=== PATIENT | female | born 1985 | race Caucasian/White ===

== ENCOUNTER 2023-01-11 16:17 | Emergency (ER) | payer MEDICAID, SELFPAY ==
[2023-01-11 16:21] VITALS: BMI 20.1
[2023-01-11 16:23] VITALS: BP 129/63; PULSE 79; RESP 16; TEMP 36.4; O2SAT 100
--- NOTE | 2023-01-11 16:45 | ED_ITS ---
Documented by User: REJI Araya 01/12/23 07:17 HPI - Nausea/Vomiting/Diarrhea General: Chief complaint: Nausea/Vomiting/Diarrhea Stated complaint: N/V Time Seen by Provider: 01/11/23 16:25 Source: patient and family () Mode of arrival: ambulatory Limitations: no limitations History of Present Illness: 37-year-old female comes in today for complaints of nausea vomiting and diarrhea since Tuesday. Patient reports that she has ulcerative colitis and has not b een on any maintenance medications since moving to [place] from [place]. Patient reports no fever. Patient does use marijuana routinely. Patient has had C-sections, hemorrhoidectomy with sphincter repair, and a colonoscopy done in 2014. Patient appears unwell but not toxic. Patient appears in mild to no pain. Patient was brought in by EMS and was given Phenergan in route for her nausea and vomiting which she states has improved her symptoms. Patient also has a history of iron deficient anemia. Patient is a 37-year-old female presents to ED today with complaint of nausea, vomiting, diarrhea. states that symptoms have been present over the past 2 to 3 days. He states patient has a history of ulcerative colitis and has not been on any medications for this ever since moving from [place]. They state since September this is patient's third episode of acute onset nausea vomiting diarrhea. Patient states she has vomited and had countless episodes of diarrhea. She describes the diarrhea as yellow and watery. She does report multiple previous episodes of C. difficile. Patient is not complaining of much abdominal pain or cramping. She has not had any bloody diarrhea. No fevers. She does use marijuana habitually. MD elicited complaint: nausea, vomiting and diarrhea Pertinent past history: other (ulcerative colitis) Onset (ago): day(s) Associated abdominal pain: No Exacerbating factors: none Relieving factors: none Context: marijuana use Associated symtoms: Denies dizziness, dysuria or fatigue Review of Systems Const: Denies: fever(s), chills, body aches or fatigue GI: Denies: abdominal pain, hematochezia or melena : Denies: flank pain, dysuria, urinary frequency, urinary urgency or urinary hesitancy Musc: Denies: extremity pain, extremity swelling or joint pain Neuro: Denies: numbness in extremities, weakness in extremities, sensory changes or dizziness [facility] Female Reproductive History: Date of last menstrual period: 12/15/22 Physical Exam Const: COMMON NORMALS: no acute distress, average body habitus, patient oriented x3, no limitations, healthy appearing and well nourished GENERAL APPEARANCE: cooperative and ill appearing (mild) ORIENTATION/CONSCIOUSNESS: Yes awake, Yes oriented to person, Yes oriented to place and Yes oriented to time HENMT: COMMON NORMALS: atraumatic HEAD & SCALP: normal to inspection and atraumatic Neck/C-Spine: COMMON NORMALS: no lymphadenopathy GI: COMMON NORMALS: Normal to inspection, nondistended, normoactive bowel sounds present, No hepatosplenomegaly present and no masses INSPECTION: Yes normal to inspection AUSCULTATION: Yes normoactive bowel sounds PALPATION: No Tenderness to palpation present (GI), No Guarding due to palpation present (GI), No Rigid due to palpation and Yes No hepatosplenomegaly present : COMMON NORMALS: Yes no CVA tenderness BLADDER/KIDNEY EXAM: Yes no CVA tenderness Back/Pelvis: COMMON NORMALS: no CVA tenderness, no thoracic nor lumbar tenderness and thoraco-lumbar ROM normal Extremity: COMMON NORMALS: normal to inspection GENERAL: Yes normal exam except as noted Neuro: MICHELLE COMA SCALE: document GCS findings [place] coma scale eye opening: Spontaneous Michelle coma scale verbal response: Orientated Michelle coma scale motor response: Obey commands [place] coma scale total score: 15 COMMON NORMALS: patient oriented x3, moves all extremities, no focal motor deficits, no sensory deficits noted and gait normal SENSORIUM/ORIENTATION: Yes oriented to person, Yes oriented to place and Yes oriented to time Skin: COMMON NORMALS: no rashes or lesions noted GENERAL SKIN EXAM: no rashes or lesions noted Course ED course: Care transferred to [facility] at shift change. Vital Signs: Vital signs: Vital Signs Temperature 97.6 F 01/11/23 16:23 Pulse Rate 93 01/11/23 21:08 Respiratory Rate 16 01/11/23 21:08 Blood Pressure 129/63 01/11/23 16:23 Pulse Oximetry 100 01/11/23 21:08 Oxygen Delivery Me thod Room Air 01/11/23 16:23 MDM - Nausea/Vomiting/Diarrhea Lab Data 01/11/23 16:25 01/11/23 16:25 Radiology Impressions Abdomen/Pelvis CT 01/11/23 17:08 IMPRESSION: 1. Nonspecific terminal ileitis and pancolitis, as described above. No abscess, obstruction or free air. Follow-up to resolution is recommended. 2. Additional findings, as above. Laboratory Results WBC 9.11 10^3/uL (3.29-11.43) 01/11/23 16:25 RBC 5.60 10^6/uL (3.85-5.65) 01/11/23 16:25 Hgb 10.30 g/dL (11.27-16.99) L 01/11/23 16:25 Hct 36.4 % (36-47) 01/11/23 16:25 MCV 65.0 fl (85-98) L 01/11/23 16:25 MCH 18.4 pg (27-33) L 01/11/23 16:25 MCHC 28.3 g/dL (30-55) L 01/11/23 16:25 RDW 21.1 % (12.1-15.1) H 01/11/23 16:25 Plt Count 624 10^3/cmm (157-399) H 01/11/23 16:25 MPV 9.2 fL (7.4-10.4) 01/11/23 16:25 Neut % (Auto) 70.9 % 01/11/23 16:25 Lymph % (Auto) 19.9 % 01/11/23 16:25 [facility] % (Auto) 7.9 % 01/11/23 16:25 Eos % (Auto) 0.1 % 01/11/23 16:25 Baso % (Auto) 0.9 % 01/11/23 16:25 Neut # (Auto) 6.46 10^3/uL (1.8-7.7) 01/11/23 16:25 Lymph # (Auto) 1.8 10^3/uL (0.8-4.8) 01/11/23 16:25 [facility] # (Auto) 0.7 10^3/uL (0.2-0.9) 01/11/23 16:25 Eos # (Auto) 0.0 10^3/uL (0.0-0.8) 01/11/23 16:25 Baso # (Auto) 0.1 10^3/uL (0.0-0.1) 01/11/23 16:25 Nucleated RBC % (auto) 0 % 01/11/23 16:25 Nucleated RBCs # 0.0 /100WBC 01/11/23 16:25 Sodium 141 mmol/L (136-145) 01/11/23 16:25 Potassium 3.8 mmol/L (3.5-5.1) 01/11/23 16:25 Chloride 99 mmol/L (98-107) 01/11/23 16:25 Carbon Dioxide 24 mmol/L (22-29) 01/11/23 16:25 Anion Gap 21.8 (5-19) H 01/11/23 16:25 BUN 9 mg/dL (6-20) 01/11/23 16:25 Creatinine 0.7 mg/dL (0.5-0.9) 01/11/23 16:25 GFR Calculation 95.2 mL/min (90-130) 01/11/23 16:25 Glucose 112 mg/dL (65-115) 01/11/23 16:25 Calculated Osmolality 291 mOsm/kg (285-295) 01/11/23 16:25 Calcium 9.0 mg/dL (8.5-10.5) 01/11/23 16:25 Total Bilirubin 0.7 mg/dL (0.15-1.2) 01/11/23 16:25 AST 14 U/L (0-32) 01/11/23 16:25 ALT 7 U/L (0-33) 01/11/23 16:25 Alkaline Phosphatase 107 U/L (35-105) H 01/11/23 16:25 Total Protein 8.1 g/dL (6.6-8.7) 01/11/23 16:25 Albumin 4.2 g/dL (3.5-5.2) 01/11/23 16:25 Globulin 3.9 g/dL (1.3-4.6) 01/11/23 16:25 Lipase 17 U/L (13-60) 01/11/23 16:25 HCG, Qual Negative (Negative) 01/11/23 16:25 Discharge Plan Discharge Patient Disposition: Home Clinical Impression: Pancolitis Condition: Stable Prescriptions: New promethazine 12.5 mg tablet 12.5 mg PO Q6H PRN (Reason: nausea and vomiting) Qty: 20 0RF promethazine 25 mg suppository 25 mg RI Q6H PRN (Reason: nausea and vomiting) Qty: 12 0RF metronidazole 250 mg tablet 250 mg PO TID Qty: 21 0RF prednisone 20 mg tablet 20 mg PO BID 7 Days Qty: 14 0RF Discharge Orders: Discharge ED (Routine); Ordered 01/11/23 Ordered By: Pankaj Marino Discharge Diet: Advance as tolerated Discharge Activity: Increase activity as tolerated Patient Instructions: Opioid Safety, Pain Management Activity Restrictions/Additional Instructions: Drink plenty of water and fluids. Use promethazine as needed to control nausea and vomiting. Use Flagyl as directed. Take steroids routinely. Use an elec trolyte solution especially with diarrhea. Follow-up with primary care as needed. Case management will contact you regarding follow-up appointment with gastroenterology/surgeon for further evaluation and treatment with colonoscopy. Return to ER for worsening symptoms such as blood in the stool, high fever greater than 100.4, or new concerns. Sign Out Sign Out Data: Patient Sign Out occurred on 01/11/23 at 17:53. Patient's care was discussed, and care was transferred from to Pankaj Marino. Coding Level of Care Code ED Press Secretary for Chg Fwd Documented by User: WEST Lawler 01/11/23 18:37 HPI - Nausea/Vomiting/Diarrhea General: Chief complaint: Nausea/Vomiting/Diarrhea Stated complaint: N/V Time Seen by Provider: 01/11/23 16:25 History of Present Illness: 37-year-old female comes in today for complaints of nausea vomiting and diarrhea since Tuesday. Patient reports that she has ulcerative colitis and has not been on any maintenance medications since moving to [place] from [place]. Patient reports no fever. Patient does use marijuana routinely. Patient has had C-sections, hemorrhoidectomy with sphincter repair, and a colonoscopy done in 2014. Patient appears unwell but not toxic. Patient appears in mild to no pain. Patient was brought in by EMS and was given Phenergan in route for her nausea and vomiting which she states has improved her symptoms. Patient also has a history of iron deficient anemia. Associated nausea: Yes Associated symtoms: Reports headache(s), malaise and nausea; Denies chest pain Review of Systems General: Reports: 10 or more systems reviewed and unremarkable except in HPI and below Const: Reports: malaise Card: Denies: chest pain Resp: Reports: dyspnea GI: Reports: nausea, vomiting and diarrhea : Denies: difficulty voiding Musc: Denies: neck pain or back pain Skin/Breast: Denies: rash Neuro: Reports: headache(s) Physical Exam Const: COMMON NORMALS: alert HENMT: COMMON NORMALS: normocephalic HEAD & SCALP: normocephalic MOUTH: Abnormal oral and palatal mucosa present (Dry) Neck/C-Spine: COMMON NORMALS: full ROM and no meningeal signs Resp: COMMON NORMALS: normal respiratory effort and clear to auscultation bilaterally AUSCULTATION: clear to auscultation bilaterally Cardio: COMMON NORMALS: regular rate and regular rhythm RATE: regular rate RHYTHM: regular rhythm GI: COMMON NORMALS: Soft to palpation and non-tender PALPATION: Yes Soft to palpation Back/Pelvis: COMMON NORMALS: thoracic and lumbar spine normal to inspection Extremity: COMMON NORMALS: full ROM Neuro: SENSORIUM/ORIENTATION: Yes alert MENINGEAL SIGNS: Yes no meningeal signs Skin: COMMON NORMALS: turgor normal GENERAL SKIN EXAM: turgor normal Course Vital Signs: Vital signs: Vital Signs Temperature 97.6 F 01/11/23 16:23 Pulse Rate 93 01/11/23 21:08 Respiratory Rate 16 01/11/23 21:08 Blood Pressure 129/63 01/11/23 16:23 Pulse Oximetry 100 01/11/23 21:08 Oxygen Delivery Me thod Room Air 01/11/23 16:23 MDM - Nausea/Vomiting/Diarrhea Medical Decision Making 37-year-old female comes in today with nausea vomiting diarrhea since Tuesday. Patient has a history of ulcerative colitis. On exam abdomen soft with mild tenderness. Bowel sounds are hyperactive. Skin is warm and dry. Oral mucosas dry. Vital signs are normal. Differential diagnosis includes but not limited to gastroenteritis, exacerbation of ulcerative colitis, cannabinoid hyperemesis syndrome, dehydration, appendicitis. CMP noted some mild microcytic anemia with a hemoglobin of 10.3, CMP was unremarkable except for some elevation in anion gap of 21.8, and alk phos of 107. CT of the abdomen pelvis noted ileitis with pancolitis without signs of abscess, obstruction, or free air. Exam points towards exacerbation of ulcerative colitis, patient was given 1 L of IV fluids which improved symptoms tremendously suggesting secondary dehydration. Patient was started on steroids and Flagyl with recommendations to follow-up with gastro/surgeon for colonoscopy and further evaluation and treatment. Patient reported understanding of care plan and need for follow-up or return to the ER. I reviewed this with Dr. Henriquez who agreed to plan. Lab Data 01/11/23 16:25 01/11/23 16:25 Radiology Impressions Abdomen/Pelvis CT 01/11/23 17:08 IMPRESSION: 1. Nonspecific terminal ileitis and pancolitis, as described above. No abscess, obstruction or free air. Follow-up to resolution is recommended. 2. Additional findings, as above. Laboratory Results WBC 9.11 10^3/uL (3.29-11.43) 01/11/23 16:25 RBC 5.60 10^6/uL (3.85-5.65) 01/11/23 16:25 Hgb 10.30 g/dL (11.27-16.99) L 01/11/23 16:25 Hct 36.4 % (36-47) 01/11/23 16:25 MCV 65.0 fl (85-98) L 01/11/23 16:25 MCH 18.4 pg (27-33) L 01/11/23 16:25 MCHC 28.3 g/dL (30-55) L 01/11/23 16:25 RDW 21.1 % (12.1-15.1) H 01/11/23 16:25 Plt Count 624 10^3/cmm (157-399) H 01/11/23 16:25 MPV 9.2 fL (7.4-10.4) 01/11/23 16:25 Neut % (Auto) 70.9 % 01/11/23 16:25 Lymph % (Auto) 19.9 % 01/11/23 16:25 [facility] % (Auto) 7.9 % 01/11/23 16:25 Eos % (Auto) 0.1 % 01/11/23 16:25 Baso % (Auto) 0.9 % 01/11/23 16:25 Neut # (Auto) 6.46 10^3/uL (1.8-7.7) 01/11/23 16:25 Lymph # (Auto) 1.8 10^3/uL (0.8-4.8) 01/11/23 16:25 [facility] # (Auto) 0.7 10^3/uL (0.2-0.9) 01/11/23 16:25 Eos # (Auto) 0.0 10^3/uL (0.0-0.8) 01/11/23 16:25 Baso # (Auto) 0.1 10^3/uL (0.0-0.1) 01/11/23 16:25 Nucleated RBC % (auto) 0 % 01/11/23 16:25 Nucleated RBCs # 0.0 /100WBC 01/11/23 16:25 Sodium 141 mmol/L (136-145) 01/11/23 16:25 Potassium 3.8 mmol/L (3.5-5.1) 01/11/23 16:25 Chloride 99 mmol/L (98-107) 01/11/23 16:25 Carbon Dioxide 24 mmol/L (22-29) 01/11/23 16:25 Anion Gap 21.8 (5-19) H 01/11/23 16:25 BUN 9 mg/dL (6-20) 01/11/23 16:25 Creatinine 0.7 mg/dL (0.5-0.9) 01/11/23 16:25 GFR Calculation 95.2 mL/min (90-130) 01/11/23 16:25 Glucose 112 mg/dL (65-115) 01/11/23 16:25 Calculated Osmolality 291 mOsm/kg (285-295) 01/11/23 16:25 Calcium 9.0 mg/dL (8.5-10.5) 01/11/23 16:25 Total Bilirubin 0.7 mg/dL (0.15-1.2) 01/11/23 16:25 AST 14 U/L (0-32) 01/11/23 16:25 ALT 7 U/L (0-33) 01/11/23 16:25 Alkaline Phosphatase 107 U/L (35-105) H 01/11/23 16:25 Total Protein 8.1 g/dL (6.6-8.7) 01/11/23 16:25 Albumin 4.2 g/dL (3.5-5.2) 01/11/23 16:25 Globulin 3.9 g/dL (1.3-4.6) 01/11/23 16:25 Lipase 17 U/L (13-60) 01/11/23 16:25 HCG, Qual Negative (Negative) 01/11/23 16:25 Discharge Plan Discharge Patient Disposition: Home Clinical Impression: Pancolitis Condition: Stable Prescriptions: New promethazine 12.5 mg tablet 12.5 mg PO Q6H PRN (Reason: nausea and vomiting) Qty: 20 0RF promethazine 25 mg suppository 25 mg RI Q6H PRN (Reason: nausea and vomiting) Qty: 12 0RF metronidazole 250 mg tablet 250 mg PO TID Qty: 21 0RF prednisone 20 mg tablet 20 mg PO BID 7 Days Qty: 14 0RF Discharge Orders: Discharge ED (Routine); Ordered 01/11/23 Ordered By: Pankaj Marino Discharge Diet: Advance as tolerated Discharge Activity: Increase activity as tolerated Patient Instructions: Opioid Safety, Pain Management Activity Restrictions/Additional Instructions: Drink plenty of water and fluids. Use promethazine as needed to control nausea and vomiting. Use Flagyl as directed. Take steroids routinely. Use an electrolyte solution especially with diarrhea. Follow-up with primary care as needed. Case management will contact you regarding follow-up appointment with gastroenterology/surgeon for further evaluation and treatment with colonoscopy. Return to ER for worsening symptoms such as blood in the stool, high fever greater than 100.4, or new concerns. Sign Out Sign Out Data: Patient Sign Out occurred on 01/11/23 at 17:53. Patient's care was discussed, and care was transferred from to Pankaj Marino. Coding Level of Care Code ED Press Secretary for Rekha Esparza
[2023-01-11 16:50] LABS: Basophils # 0.1 10^3/uL (0.0-0.1); Basophils % 0.9 %; Eosinophils % 0.1 %; Hematocrit 36.4 % (36-47); Lymphocytes # 1.8 10^3/uL (0.8-4.8); Lymphocytes % 19.9 %; Mean Corpuscular HGB Conc 28.3 g/dL (30-55); Mean Corpuscular Hemoglobin 18.4 pg (27-33); Mean Platelet Volume 9.2 fL (7.4-10.4); Monocytes # 0.7 10^3/uL (0.2-0.9); Monocytes % 7.9 %; Neutrophils # 6.46 10^3/uL (1.8-7.7); Neutrophils % 70.9 %; Nucleated Red Blood Cells % 0 %; Platelet Count 624 10^3/cmm (157-399); Red Cell Distribution Width 21.1 % (12.1-15.1); White Blood Count 9.11 10^3/uL (3.29-11.43)
[2023-01-11 16:57] LABS: HCG, Serum Qual Negative (Negative)
[2023-01-11 16:58] LABS: Alanine Aminotransferase 7 U/L (0-33); Albumin Level 4.2 g/dL (3.5-5.2); Alkaline Phosphatase 107 U/L (35-105); Anion Gap 21.8 (5-19); Aspartate Amino Transferase 14 U/L (0-32); Blood Urea Nitrogen 9 mg/dL (6-20); Carbon Dioxide 24 mmol/L (22-29); Chloride 99 mmol/L (98-107); Globulin 3.9 g/dL (1.3-4.6); Glomerular Filtration Rate 95.2 mL/min (90-130); Glucose 112 mg/dL (65-115); Lipase 17 U/L (13-60); Osmolality Calculated 291 mOsm/kg (285-295); Potassium 3.8 mmol/L (3.5-5.1); Sodium 141 mmol/L (136-145); Total Bilirubin 0.7 mg/dL (0.15-1.2); Total Protein 8.1 g/dL (6.6-8.7)
--- NOTE | 2023-01-11 17:08 | CTR_ITS ---
PROCEDURE INFORMATION: Exam: CT Abdomen And Pelvis With Contrast Exam date and time: 01/11/2023 5:17 PM Age: 37 years old Clinical indication: Mass, lump, or swelling and vomiting; Prior surgery; Surgery date: 6+ months; Surgery type: Hernia repair, x2; Additional info: N/v/d TECHNIQUE: Imaging protocol: Computed tomography of the abdomen and pelvis with contrast. Axial, coronal and sagittal reformatted images were created and reviewed. In Radiation optimization: All CT scans at this facility use at least one of these dose optimization techniques: automated exposure control; mA and/or kV adjustment per patient size (includes targeted exams where dose is matched to clinical indication); or iterative reconstruction. Contrast material: OMNI 350; Contrast volume: 100 ml; Contrast route: INTRAVENOUS (IV); REPORTING DATA: Count of CT and Cardiac NM exams in prior 12 months: This patient has received 0 known CTs and 0 known cardiac nuclear medicine studies in the 12 months prior to the current study. COMPARISON: No relevant prior studies available. RADIATION DOSE METRICS: Total DLP (mGy-cm): 307.96 FINDINGS: Liver: Unremarkable. Gallbladder and bile ducts: No radiodense gallstones. No biliary ductal dilatation. Pancreas: Unremarkable. Spleen: Unremarkable. Adrenal glands: Normal. No mass. Kidneys and ureters: No mass. No radiodense calculi. No hydronephrosis. Stomach and bowel: Moderately long segment of distal/terminal ileal wall thickening with associated mural and mesenteric edema. Diffuse colonic wall thickening with associated mural and pericolonic edema. No obstruction. No pneumatosis. Appendix: Normal. Intraperitoneal space: Trace nonspecific free pelvic fluid, likely physiologic and/or reactive. No organized fluid collection. No free air. Vasculature: Unremarkable. No aneurysm. Lymph nodes: Small mesenteric lymph nodes, likely reactive. No pathologically enlarged lymph nodes. Urinary bladder: Unremarkable as visualized. Reproductive: Unremarkable. Bones/joints: No acute osseous abnormality. Soft tissues: Unremarkable. CT/CT abdomen pelvis w con* [id number] IMPRESSION: 1. Nonspecific terminal ileitis and pancolitis, as described above. No abscess, obstruction or free air. Follow-up to resolution is recommended. 2. Additional findings, as above.
[2023-01-11] MEDS: iohexol 350 mg/mL 500 mL Btl (per mL) IV (17:27)
[2023-01-11] MEDS: methylPREDNISolone sod succ 125 MG in water for injection-sterile 2 ML IVP (17:56)
[2023-01-11] MEDS: metroNIDAZOLE IV 500 MG/100 ML PREMIX 100 MG IV (17:57)
[2023-01-11] MEDS: sodium chloride 0.9% 1,000 ML 999 ML IV (18:44)
[2023-01-11] MEDS: promethazine 25 mg/mL SDV 1 mL IM (19:22)
[2023-01-11] MEDS: diphenhydrAMINE 50 mg/mL SDV 1mL 25 MG IVP (19:36)
[2023-01-11] MEDS: diphenhydrAMINE 50 mg/mL SDV 1mL IM (20:15)
--- NOTE | 2023-01-11 20:15 | PC.NURSE ---
Phenergan suppository sent home with pt per BEAD FILLER's order.
[2023-01-11 21:08] VITALS: PULSE 93; RESP 16; O2SAT 100
--- NOTE | 2023-01-12 07:47 | DCPLANNER ---
Addendum entered by Leida Elizabeth 01/12/23 11:22: ramp manager received the following message from the general surgery clinic regarding follow up appointment: spoke to pt she wants to wait until her insurance kicks in to make an appointment with us she said she would call us back when she has insurance Original Note: ramp manager had massage to schedule a follow up appointment for patient with general surgery. ramp manager sent patients information to the front office staff at general surgery. Patients information will be printed and reviewed. Clinic will call patient with appointment information.
== END 2023-01-11 20:46 | disposition home or self-care (01) ==
PROVIDERS: Physician Assistant; Emergency Provider Nurse Practitioner Family
DX: K51.00 Ulcerative (chronic) pancolitis without complications (principal)
CPT/HCPCS: 74177; 80053; 83690; 84703; 85025; 96365; 96366; 96372; 96375; 99285; J1200; J2550; J2930; J3490; J7030; Q9967

== ENCOUNTER 2023-01-13 07:43 | Inpatient (IN) | payer MEDICAID, SELFPAY ==
[2023-01-13] VITALS (12 sets, daily range): BP systolic 100–146; BP diastolic 56–86; PULSE 56–74; RESP 15–20; TEMP 36.6–37.1; O2SAT 94–100
[2023-01-13] MEDS: ondansetron 2 mg/ML SDV 2 mL 4 MG IVP ×2 (08:45→15:11)
[2023-01-13] MEDS: sodium chloride 0.9% 1,000 ML 999 ML IV (08:46)
[2023-01-13] MEDS: LORazepam 2 mg/mL INJ 1 mL 1 MG IVP (08:46)
[2023-01-13 09:01] LABS: Basophils % 0.2 %; Hematocrit 31.7 % (36-47); Lymphocytes # 1.4 10^3/uL (0.8-4.8); Lymphocytes % 8.3 %; Mean Corpuscular Hemoglobin 18.8 pg (27-33); Mean Corpuscular Volume 64.7 fl (85-98); Mean Platelet Volume 8.9 fL (7.4-10.4); Monocytes # 1.1 10^3/uL (0.2-0.9); Monocytes % 6.4 %; Neutrophils # 14.05 10^3/uL (1.8-7.7); Neutrophils % 84.6 %; Nucleated Red Blood Cells % 0 %; Platelet Count 635 10^3/cmm (157-399); Red Cell Distribution Width 21.2 % (12.1-15.1); White Blood Count 16.61 10^3/uL (3.29-11.43)
--- NOTE | 2023-01-13 09:05 | PC.PHAR ---
PTS' FATHER STATED QUIETLY HE THINKS SHE IS NOT TAKING ANY OF HER MEDICATIONS. MEÑO
[2023-01-13 09:20] LABS: HCG, Serum Qual Negative (Negative)
[2023-01-13 09:24] LABS: Alanine Aminotransferase 9 U/L (0-33); Albumin Level 3.7 g/dL (3.5-5.2); Alkaline Phosphatase 88 U/L (35-105); Anion Gap 23.7 (5-19); Aspartate Amino Transferase 21 U/L (0-32); Blood Urea Nitrogen 10 mg/dL (6-20); Calcium 9.8 mg/dL (8.5-10.5); Carbon Dioxide 18 mmol/L (22-29); Chloride 104 mmol/L (98-107); Globulin 3.7 g/dL (1.3-4.6); Glomerular Filtration Rate 95.2 mL/min (90-130); Glucose 107 mg/dL (65-115); Lipase 13 U/L (13-60); Osmolality Calculated 294 mOsm/kg (285-295); Potassium 3.7 mmol/L (3.5-5.1); Sodium 142 mmol/L (136-145); Total Bilirubin 0.6 mg/dL (0.15-1.2); Total Protein 7.4 g/dL (6.6-8.7)
[2023-01-13 09:26] LABS: Add Urine Microscopic? YES; Bilirubin Urine Neg (Negative); Blood Urine Neg (Negative); Glucose Urine UA Norm (Normal); Ketones Urine 3+ (Negative); Leukocyte Esterase Urine Negative (Negative); Nitrate Urine Negative (Negative); Protein Urine Trace (Negative); Urine Appearance Hazy (CLEAR); Urine Color Yellow (Yellow); Urobilinogen Urine Norm (Negative); pH Urine 6 (5-7)
[2023-01-13 09:27] LABS: Bacteria Urine 1+ /hpf; Mucus Urine 2+ /hpf; RBC Urine RARE /hpf (0-2); WBC Urine 0-4 /hpf (0-5)
--- NOTE | 2023-01-13 09:44 | CT_ITS ---
WS: [id number] CT ABDOMEN AND PELVIS WITH CONTRAST HISTORY: abdominal pain TECHNIQUE: Imaging performed of the abdomen and pelvis with IV contrast. Single phase imaging of the abdomen. Coronal and sagittal reformats are submitted. All CT scans at [facility] use at [address] one of these dose optimization techniques: automated exposure control; mA and/or kV adjustment per patient size (includes targeted exams where dose is matched to clinical indication); or iterative re construction. IV CONTRAST: Omnipaque 350; 100 mL IV. Oral contrast: No DLP: 303.25 mGy.cm COMPARISON: 01/11/2023 Lower thorax: Lung bases are clear. Heart is normal size. Small hiatal hernia. Liver/biliary system: Normal size with no intrahepatic dilatation. Gallbladder: There is increased attenuation within the gallbladder. Probably vicarious excretion thro ugh the biliary system from a CT obtained on 01/11/2023. Pancreas: Normal size pancreas and pancreatic duct. No adjacent inflammation. Spleen: Normal size spleen. No mass or infarct. Adrenal glands: Normal. Right kidney: Normal. Left kidney: Normal. Aorta: Normal. Lymphadenopathy: None. Free fluid: None. GI tract: Mild fluid distention of the stomach. No small bowel obstruction. There is a patulous loop of distended GI tract in the RIGHT lower quadrant which was also present on the prior study. Distal s mall bowel loop is fluid distention and this is probably the distal small bowel. The terminal ileum i s mildly narrowed. There is a very mild shaggy appearance of the terminal ileum and the distal small bowel. There is a shaggy appearance of nearly the entire colon with wall thickening. Enhancement of t he colonic wall but there is no obstruction. Similar findings were noted on the prior study with mild improvement. No abscess. The appendix is not identified. Abdominal wall: Unremarkable abdominal wall. No hernia. Pelvis: No free fluid or adenopathy within the pelvis. Bones: Unremarkable. IMPRESSION: 1. Continued hyperemia and wall thickening of the colon and distal small bowel. Findings are consist ent with acute exacerbation of IBD and ileitis. There is a patulous loop of dilated distal small yefri l in the RIGHT lower quadrant which may be due to an partial longstanding obstruction at the terminal ileum. There is no perforation or abscess at this time. The appendix is not identified. 2. No renal obstruction.
--- NOTE | 2023-01-13 09:45 | W.ED.ABDPA2 ---
Documented by User: Aniya Hakwins DIAMOND SORTER-C 01/13/23 12:04 HPI - Abdominal Pain General: Chief Complaint: Abdominal Pain Stated Complaint: abd pain, anxiety Time Seen by Provider: 01/13/23 07:45 History of Present Illness: Patient is in today for nausea, vomiting, diarrhea. Patient does most of the talking for her as patient states she feels like she will vomit. She does shake her head in agreements with what the is saying. Spouse says that patient started vomiting on Tuesday of last week and has been vomiting more than 20 times a day lately more than 30 times a day. He states that she has a history of ulcerative colitis as she has had 3 major flares in the past 1 year. He states that she was seen in the ER on Tuesday and was sent home with Flagyl and Phenergan and steroids. They were unable to pick this up until Tuesday at 11 when the pharmacy opened. He reports that the patient has not been able to keep any of the medication down. He reports that last night the patient started having blood in her vomit and worsening central abdominal pain so they decided to return today. Patient denies fever. Associated Symptoms: Reports diarrhea, nausea and vomiting; Denies chills, dysuria and fever(s) Review of Systems Const: Denies: fever(s) or chills Card: Denies: chest pain or palpitations Resp: Denies: dyspnea or productive cough GI: Reports: abdominal pain, nausea, vomiting and diarrhea : Denies: flank pain, difficulty voiding or dysuria Psych: Reports: anxiety (Reports increased anxiety taking the Phenergan) [facility] PFSH: Medical History (Updated 01/13/23 @ 15:22 by Ignacio Corral DO) Anxiety PTSD (post-traumatic stress disorder) Surgical History (Updated 01/13/23 @ 12:49 by Rodriguez Burns MD) H/O congenital atrial septal defect (ASD) repair History of History of hemorrhoidectomy History of hernia repair Family History (Updated 01/13/23 @ 12:49 by Rodriguez Burns MD) Other Psychiatric illness Social History (Updated 01/13/23 @ 12:50 by Rodriguez Burns MD) Alcohol intake: never Substance/Drug Use: current Substance/Drug use type: Marijuana Physical Exam Const: OTHER: This is an ill-appearing female. She is alert and oriented. She is actively vomiting and having dry heaves. Neck/C-Spine: COMMON NORMALS: no JVD Resp: COMMON NORMALS: normal respiratory effort, No use of accessory muscles and clear to auscultation bilaterally AUSCULTATION: clear to auscultation bilaterally Cardio: COMMON NORMALS: no JVD, regular rate, regular rhythm, S1 normal heart sound present and S2 normal heart sound present RATE: regular rate RHYTHM: regular rhythm HEART SOUNDS: S1 normal heart sound present and S2 normal heart sound present GI: COMMON NORMALS: Soft to palpation INSPECTION: Yes normal to inspection AUSCULTATION: Yes normoactive bowel sounds PALPATION: Yes Soft to palpation and Yes Tenderness to palpation present (GI) Details: other (Generalized) Psych: OTHER: Patient is anxious and tearful. states that she has medical trauma PTSD Course Vital Signs: Vital signs: Vital Signs Temperature 98.3 F 01/13/23 13:50 Pulse Rate 70 01/13/23 13:50 Respiratory Rate 20 H 01/13/23 13:50 Blood Pressure 109/63 01/13/23 13:50 Pulse Oximetry 100 01/13/23 13:50 Oxygen Delivery Me thod Room Air 01/13/23 13:51 MDM - Abdominal Pain Medical Decision Making When patient was here on Tuesday her labs are essentially unremarkable her CT scan showed pancolitis with no abscess or perforation. Patient was sent home on Flagyl, steroid, Phenergan. Patient was referred to GI for further evaluation and colonoscopy. It is reported by case management the patient declined referral as she is not insured. Patient has not started any of the medications that she was prescribed on Tuesday as she has been unable to keep anything down. Labs today indicate a white blood cell count of 16.6. Elevated anion gap. Urine shows 1+ bacteria with ketones. No nitrates. Patient is given a liter of normal saline IV fluids. She is treated with Zofran which did help her nausea. Morphine to help with her pain. 1 dose of Ativan was given for patient's anxiety. CT scan shows consistent findings from previous scan with generalized wall thickening consistent with IBD and ileitis. CT scan also shows suspicion of longstanding obstruction at the terminal ileum. No abscess or perforation appreciated. I have discussed this case at length with Dr. Rivera. He agrees with work-up and plan of care thus far. He also agrees with consulting with hospitalist for inpatient admission due to outpatient treatment failure. I called and spoke with Dr. Burns who is going to come down and see patient and evaluate. Lab Data 01/13/23 08:55 01/13/23 08:55 Labs/Radiology: Laboratory Results WBC 16.61 10^3/uL (3.29-11.43) H 01/13/23 08:55 RBC 4.90 10^6/uL (3.85-5.65) 01/13/23 08:55 Hgb 9.20 g/dL (11.27-16.99) L 01/13/23 08:55 Hct 31.7 % (36-47) L 01/13/23 08:55 MCV 64.7 fl (85-98) L 01/13/23 08:55 MCH 18.8 pg (27-33) L 01/13/23 08:55 MCHC 29.0 g/dL (30-55) L 01/13/23 08:55 RDW 21.2 % (12.1-15.1) H 01/13/23 08:55 Plt Count 635 10^3/cmm (157-399) H 01/13/23 08:55 MPV 8.9 fL (7.4-10.4) 01/13/23 08:55 Neut % (Auto) 84.6 % 01/13/23 08:55 Lymph % (Auto) 8.3 % 01/13/23 08:55 [place] % (Auto) 6.4 % 01/13/23 08:55 Eos % (Auto) 0.0 % 01/13/23 08:55 Baso % (Auto) 0.2 % 01/13/23 08:55 Neut # (Auto) 14.05 10^3/uL (1.8-7.7) H 01/13/23 08:55 Lymph # (Auto) 1.4 10^3/uL (0.8-4.8) 01/13/23 08:55 [place] # (Auto) 1.1 10^3/uL (0.2-0.9) H 01/13/23 08:55 Eos # (Auto) 0.0 10^3/uL (0.0-0.8) 01/13/23 08:55 Baso # (Auto) 0.0 10^3/uL (0.0-0.1) 01/13/23 08:55 Nucleated RBC % (auto) 0 % 01/13/23 08:55 Nucleated RBCs # 0.0 /100WBC 01/13/23 08:55 Sodium 142 mmol/L (136-145) 01/13/23 08:55 Potassium 3.7 mmol/L (3.5-5.1) 01/13/23 08:55 Chloride 104 mmol/L (98-107) 01/13/23 08:55 Carbon Dioxide 18 mmol/L (22-29) L 01/13/23 08:55 Anion Gap 23.7 (5-19) H 01/13/23 08:55 BUN 10 mg/dL (6-20) 01/13/23 08:55 Creatinine 0.7 mg/dL (0.5-0.9) 01/13/23 08:55 GFR Calculation 95.2 mL/min (90-130) 01/13/23 08:55 Glucose 107 mg/dL (65-115) 01/13/23 08:55 Calculated Osmolality 294 mOsm/kg (285-295) 01/13/23 08:55 Calcium 9.8 mg/dL (8.5-10.5) 01/13/23 08:55 Magnesium 1.6 mg/dL (1.7-2.3) L 01/13/23 08:51 Iron 21 ug/dL (37-145) L 01/13/23 08:51 TIBC 336 mcg/dl 01/13/23 08:51 % Saturation 6.2 % (20-50) L 01/13/23 08:51 Unsat Iron Binding 315 ug/dL (112-347) 01/13/23 08:51 Ferritin 8 ng/mL (15-150) L 01/13/23 08:51 Total Bilirubin 0.6 mg/dL (0.15-1.2) 01/13/23 08:55 AST 21 U/L (0-32) 01/13/23 08:55 ALT 9 U/L (0-33) 01/13/23 08:55 Alkaline Phosphatase 88 U/L (35-105) 01/13/23 08:55 C-Reactive Protein 9.4 mg/L (0.0-4.9) H 01/13/23 08:51 Total Protein 7.4 g/dL (6.6-8.7) 01/13/23 08:55 Albumin 3.7 g/dL (3.5-5.2) 01/13/23 08:55 Globulin 3.7 g/dL (1.3-4.6) 01/13/23 08:55 Lipase 13 U/L (13-60) 01/13/23 08:55 Vitamin B12 1552 pg/mL (232-1245) H 01/13/23 08:51 Folate 10.7 ng/mL (4.8-37.3) 01/13/23 08:37 TSH 2.99 uIU/mL (0.27-4.20) 01/13/23 08:51 HCG, Qual Negative (Negative) 01/13/23 08:55 Urine Color Yellow (Yellow) 01/13/23 08:51 Urine Appearance Hazy (CLEAR) A 01/13/23 08:51 Urine pH 6 (5-7) 01/13/23 08:51 Ur Specific [place] 1.030 (1.005-1.030) 01/13/23 08:51 Urine Protein Trace (Negative) 01/13/23 08:51 Urine Glucose (UA) Norm (Normal) 01/13/23 08:51 Urine Ketones 3+ (Negative) H 01/13/23 08:51 Urine Blood Neg (Negative) 01/13/23 08:51 Urine Nitrate Negative (Negative) 01/13/23 08:51 Urine Bilirubin Neg (Negative) 01/13/23 08:51 Urine Urobilinogen Norm mg/dL (Negative) 01/13/23 08:51 Ur Leukocyte Esterase Negative (Negative) 01/13/23 08:51 Urine RBC Rare /hpf (0-2) 01/13/23 08:51 Urine WBC 0-4 /hpf (0-5) H 01/13/23 08:51 Ur Squamous Epith Cells 5-10 /hpf (0-5) H 01/13/23 08:51 Amorphous Sediment Not Reportable 01/13/23 08:51 Urine Bacteria 1+ /hpf (NONE) H 01/13/23 08:51 Urine Mucus 2+ /hpf 01/13/23 08:51 Discharge Plan Discharge Patient Disposition: Admitted As Inpatient Admit Provider: Rodriguez Burns Clinical Impression: Inflammatory bowel disease, Anemia Condition: Stable Coding Level of Care Code ED Classified Advertising Clerk for Rekha Esparza Documented by User: Ignacio Corral DO 01/13/23 15:22 HPI - Abdominal Pain General: Chief Complaint: Abdominal Pain Stated Complaint: abd pain, anxiety Time Seen by Provider: 01/13/23 07:45 PFSH ED PFSH: Medical History (Updated 01/13/23 @ 15:22 by Ignacio Corral DO) Anxiety PTSD (post-traumatic stress disorder) Surgical History (Updated 01/13/23 @ 12:49 by Rodriguez Burns MD) H/O congenital atrial septal defect (ASD) repair History of History of hemorrhoidectomy History of hernia repair Family History (Updated 01/13/23 @ 12:49 by Rodriguez Burns MD) Other Psychiatric illness Social History (Updated 01/13/23 @ 12:50 by Rodriguez Burns MD) Alcohol intake: never Substance/Drug Use: current Substance/Drug use type: Marijuana Course Vital Signs: Vital signs: Vital Signs Temperature 98.3 F 01/13/23 13:50 Pulse Rate 70 01/13/23 13:50 Respiratory Rate 20 H 01/13/23 13:50 Blood Pressure 109/63 01/13/23 13:50 Pulse Oximetry 100 01/13/23 13:50 Oxygen Delivery Me thod Room Air 01/13/23 13:51 MDM - Abdominal Pain Medical Decision Making When patient was here on Tuesday her labs are essentially unremarkable her CT scan showed pancolitis with no abscess or perforation. Patient was sent home on Flagyl, steroid, Phenergan. Patient was referred to GI for further evaluation and colonoscopy. It is reported by case management the patient declined referral as she is not insured. Patient has not started any of the medications that she was prescribed on Briana as she has been unable to keep anything down. Labs today indicate a white blood cell count of 16.6. Elevated anion gap. Urine shows 1+ bacteria with ketones. No nitrates. Patient is given a liter of normal saline IV fluids. She is treated with Zofran which did help her nausea. Morphine to help with her pain. 1 dose of Ativan was given for patient's anxiety. CT scan shows consistent findings from previous scan with generalized wall thickening consistent with IBD and ileitis. CT scan also shows suspicion of longstanding obstruction at the terminal ileum. No abscess or perforation appreciated. I have discussed this case at length with Dr. Rivera. He agrees with work-up and plan of care thus far. He also agrees with consulting with hospitalist for inpatient admission due to outpatient treatment failure. I called and spoke with Dr. Burns who is going to come down and see patient and evaluate. Chart reviewed and patient discussed with midlevel. Agree with assessment and plan. Medical Records I reviewed the patient's medical records. Lab Data I reviewed the patient's lab results. 01/13/23 08:55 01/13/23 08:55 Labs/Radiology: Laboratory Results WBC 16.61 10^3/uL (3.29-11.43) H 01/13/23 08:55 RBC 4.90 10^6/uL (3.85-5.65) 01/13/23 08:55 Hgb 9.20 g/dL (11.27-16.99) L 01/13/23 08:55 Hct 31.7 % (36-47) L 01/13/23 08:55 MCV 64.7 fl (85-98) L 01/13/23 08:55 MCH 18.8 pg (27-33) L 01/13/23 08:55 MCHC 29.0 g/dL (30-55) L 01/13/23 08:55 RDW 21.2 % (12.1-15.1) H 01/13/23 08:55 Plt Count 635 10^3/cmm (157-399) H 01/13/23 08:55 MPV 8.9 fL (7.4-10.4) 01/13/23 08:55 Neut % (Auto) 84.6 % 01/13/23 08:55 Lymph % (Auto) 8.3 % 01/13/23 08:55 [place] % (Auto) 6.4 % 01/13/23 08:55 Eos % (Auto) 0.0 % 01/13/23 08:55 Baso % (Auto) 0.2 % 01/13/23 08:55 Neut # (Auto) 14.05 10^3/uL (1.8-7.7) H 01/13/23 08:55 Lymph # (Auto) 1.4 10^3/uL (0.8-4.8) 01/13/23 08:55 [place] # (Auto) 1.1 10^3/uL (0.2-0.9) H 01/13/23 08:55 Eos # (Auto) 0.0 10^3/uL (0.0-0.8) 01/13/23 08:55 Baso # (Auto) 0.0 10^3/uL (0.0-0.1) 01/13/23 08:55 Nucleated RBC % (auto) 0 % 01/13/23 08:55 Nucleated RBCs # 0.0 /100WBC 01/13/23 08:55 Sodium 142 mmol/L (136-145) 01/13/23 08:55 Potassium 3.7 mmol/L (3.5-5.1) 01/13/23 08:55 Chloride 104 mmol/L (98-107) 01/13/23 08:55 Carbon Dioxide 18 mmol/L (22-29) L 01/13/23 08:55 Anion Gap 23.7 (5-19) H 01/13/23 08:55 BUN 10 mg/dL (6-20) 01/13/23 08:55 Creatinine 0.7 mg/dL (0.5-0.9) 01/13/23 08:55 GFR Calculation 95.2 mL/min (90-130) 01/13/23 08:55 Glucose 107 mg/dL (65-115) 01/13/23 08:55 Calculated Osmolality 294 mOsm/kg (285-295) 01/13/23 08:55 Calcium 9.8 mg/dL (8.5-10.5) 01/13/23 08:55 Magnesium 1.6 mg/dL (1.7-2.3) L 01/13/23 08:51 Iron 21 ug/dL (37-145) L 01/13/23 08:51 TIBC 336 mcg/dl 01/13/23 08:51 % Saturation 6.2 % (20-50) L 01/13/23 08:51 Unsat Iron Binding 315 ug/dL (112-347) 01/13/23 08:51 Ferritin 8 ng/mL (15-150) L 01/13/23 08:51 Total Bilirubin 0.6 mg/dL (0.15-1.2) 01/13/23 08:55 AST 21 U/L (0-32) 01/13/23 08:55 ALT 9 U/L (0-33) 01/13/23 08:55 Alkaline Phosphatase 88 U/L (35-105) 01/13/23 08:55 C-Reactive Protein 9.4 mg/L (0.0-4.9) H 01/13/23 08:51 Total Protein 7.4 g/dL (6.6-8.7) 01/13/23 08:55 Albumin 3.7 g/dL (3.5-5.2) 01/13/23 08:55 Globulin 3.7 g/dL (1.3-4.6) 01/13/23 08:55 Lipase 13 U/L (13-60) 01/13/23 08:55 Vitamin B12 1552 pg/mL (232-1245) H 01/13/23 08:51 Folate 10.7 ng/mL (4.8-37.3) 01/13/23 08:37 TSH 2.99 uIU/mL (0.27-4.20) 01/13/23 08:51 HCG, Qual Negative (Negative) 01/13/23 08:55 Urine Color Yellow (Yellow) 01/13/23 08:51 Urine Appearance Hazy (CLEAR) A 01/13/23 08:51 Urine pH 6 (5-7) 01/13/23 08:51 Ur Specific [place] 1.030 (1.005-1.030) 01/13/23 08:51 Urine Protein Trace (Negative) 01/13/23 08:51 Urine Glucose (UA) Norm (Normal) 01/13/23 08:51 Urine Ketones 3+ (Negative) H 01/13/23 08:51 Urine Blood Neg (Negative) 01/13/23 08:51 Urine Nitrate Negative (Negative) 01/13/23 08:51 Urine Bilirubin Neg (Negative) 01/13/23 08:51 Urine Urobilinogen Norm mg/dL (Negative) 01/13/23 08:51 Ur Leukocyte Esterase Negative (Negative) 01/13/23 08:51 Urine RBC Rare /hpf (0-2) 01/13/23 08:51 Urine WBC 0-4 /hpf (0-5) H 01/13/23 08:51 Ur Squamous Epith Cells 5-10 /hpf (0-5) H 01/13/23 08:51 Amorphous Sediment Not Reportable 01/13/23 08:51 Urine Bacteria 1+ /hpf (NONE) H 01/13/23 08:51 Urine Mucus 2+ /hpf 01/13/23 08:51 Discharge Plan Discharge Patient Disposition: Admitted As Inpatient Admit Provider: Rodriguez Burns Clinical Impression: Inflammatory bowel disease, Anemia Condition: Stable Coding Level of Care Code ED Classified Advertising Clerk for Rekha Esparza
[2023-01-13] MEDS: iohexol 350 mg/mL 500 mL Btl (per mL) IV (10:52)
[2023-01-13] MEDS: morphine 4 mg/mL SDV 1 mL 2 MG IVP ×2 (11:20→15:20)
--- NOTE | 2023-01-13 12:38 | PM.HP ---
Providers/Chief Complaint Admitting Physician: Rodriguez Burns MD Chief Complaint: abd pain, anxiety History of Present Illness Raven Carrillo is a 37 year old female presenting to the emergency department with abdominal pain, multiple lites episodes of vomiting, and diarrhea for the last week. She was seen in the emergency department on the and given some steroids to take but was unable to take them by mouth secondary to vomiting. She was given Flagyl as well. She is back today with similar symptoms. She occasionally has some blood in her stool, small amount. They believe with her multiple episodes of vomiting she may have had a little blood in her emesis as well. Pain in her abdomen is upper, epigastric. She has had 3 flares of inflammatory bowel disease in the last year, and reports this is consistent with them. She does use THC, last use perhaps 5 days ago. No fever at home. No ill contacts she is aware of. Diarrhea typically is yellow, watery, with occasionally a little bit of blood. She has not had any significant treatment for her inflammatory bowel disease in many years. She states she was diagnosed in 2013 and this was her last endoscopy. She had previously been told she had ulcerative colitis and was on sulfasalazine. reports a 20 pound or so weight loss since September. Review of Systems General: Reports: 10 or more systems reviewed and unremarkable except in HPI and below Card: Denies: chest pain Resp: Denies: dyspnea GI: Reports: abdominal pain, nausea, vomiting, hematemesis, diarrhea and hematochezia; Denies: melena Medications/Allergies Home Medications Medication Instructions Recorded Confirmed Last Taken Type metronidazole 250 mg tablet 250 mg PO TID #21 tabs 01/11/23 01/13/23 Unknown Rx prednisone 20 mg tablet 20 mg PO BID 7 days #14 tabs 01/11/23 01/13/23 Unknown Rx bupropion HCl 150 mg 24 hr tablet, 150 mg PO QAM 01/13/23 01/13/23 Unknown History extended release (Wellbutrin XL) escitalopram oxalate 20 mg tablet 20 mg PO QPM 01/13/23 01/13/23 Unknown History (Lexapro) Allergies Allergy/AdvReac Type Severity Reaction Status Date / Time No Known Allergies Allergy Verified 01/13/23 07:56 PFSH Acute PFSH: Medical History (Updated 01/13/23 @ 12:56 by Rodriguez Burns MD) Anxiety PTSD (post-traumatic stress disorder) Surgical History (Updated 01/13/23 @ 12:49 by Rodriguez Burns MD) H/O congenital atrial septal defect (ASD) repair History of History of hemorrhoidectomy History of hernia repair Family History (Updated 01/13/23 @ 12:49 by Rodriguez Burns MD) Other Psychiatric illness Social History (Updated 01/13/23 @ 12:50 by Rodriguez Burns MD) Alcohol intake: never Substance/Drug Use: current Substance/Drug use type: Marijuana Vitals/I&O/Wt Last Vital Signs Pulse 56 L 01/13/23 08:53 Resp 16 01/13/23 11:20 BP 130/77 01/13/23 08:53 Pulse Ox 100 01/13/23 11:20 O2 Del Method Room Air 01/13/23 07:51 Weight last 48 hrs Weight 49.895 kg Physical Exam Narrative: General exam is a white female, somewhat sleepy, but able to respond and answer questions HEENT: Atraumatic normocephalic. Oropharynx clear. Neck is supple no lymphadenopathy thyromegaly Cardiovascular regular rate and rhythm, no murmur Lungs clear without wheezing or crackles Abdomen is soft. Tenderness in the epigastric area. No obvious organomegaly exam was deferred Extremities no cyanosis clubbing edema, cap refill brisk Skin no rash Neuro no focal deficits. Data 01/13/23 08:55 01/13/23 08:55 Other Labs: MCV is 65 LFTs are normal Lipase is normal Albumin and calcium are normal hCG negative Urine with 0-4 whites, 5-10 reds, concentrated with a specific gravity of 1.03. Abdomen pelvis CT which I reviewed as well demonstrates thickening of the distal small bowel, and radiology has read a patulous loop is noted which may be due to longstanding obstruction at the terminal ileum. No perforation or abscess. Blood cultures were ordered A&P Assessment and plan (1) Inflammatory bowel disease: Patient presents with significant exacerbation of her inflammatory bowel disease. She was told she has ulcerative colitis in the past, but has evidence of some small bowel inflammation on CT. White blood cell count is elevated. She is having significant pain in the epigastric area. She is seeing blood in her stools, and has anemia as well. Discussed with her the limitations here at the hospital including that we do not have GI services. At this point they agree for admission and treatment here. Risks and benefits were discussed. Initiate Zosyn IV. Initiate Solu-Medrol 60 mg IV every 24 hours Blood cultures Stool cultures C. difficile toxin stool Hydration N.p.o. at this point CBC, CMP tomorrow (2) Hyperemesis: Protonix 40 mg IV every 12 hours Offered NG. At this point we will try to avoid. Nausea control with Zofran (3) Anemia: Anemia panel CBC tomorrow Plan PTSD/severe anxiety. Ativan as needed. Start her Lexapro. Psychiatric consultation. Other medical problems as outlined in past medical history Full code SCDs for DVT prophylaxis. Pharmacologic anticoagulation contraindicated secondary to blood in stool and anemia. Attestations Medical Necessity Statement*: Will need greater than 2 midnight stay for evaluation and treatment of severe exacerbation of inflammatory bowel disease and hyperemesis. Diagnoses Inflammatory bowel disease K52.9 Hyperemesis R11.10 Anemia D64.9 Time Spent (min) 48
[2023-01-13 13:29] LABS: C Reactive Protein 9.4 mg/L (0.0-4.9); Magnesium 1.6 mg/dL (1.7-2.3); Thyroid Stimulating Hormone 2.99 uIU/mL (0.27-4.20)
[2023-01-13 14:07] LABS: Ferritin 8 ng/mL (15-150); Iron 21 ug/dL (37-145); Percent Saturation 6.2 % (20-50); Total Iron Binding Capacity 336 mcg/dl; Unsaturated Iron Binding 315 ug/dL (112-347)
[2023-01-13 14:23] LABS: Vitamin B12 1552 pg/mL (232-1245)
[2023-01-13 14:24] LABS: Folate Level 10.7 ng/mL (4.8-37.3)
[2023-01-13] MEDS: sodium chloride 0.9% 1,000 ML 100 ML IV ×2 (14:35→23:50)
[2023-01-13] MEDS: methylPREDNISolone sod succ 60 MG in water for injection-sterile 0.96 ML 11.52 MG IVP (14:38)
[2023-01-13] MEDS: pantoprazole 40 mg SDV IVP (14:40)
[2023-01-13] MEDS: magnesium sulfate premix 2 GM/50 ML PIGGYBACK IV (14:40)
[2023-01-13] MEDS: piperacillin-tazobactam 3.375 GM in sodium chloride 0.9% (plus) 50 ML IV ×2 (15:46→23:49)
[2023-01-13] MEDS: escitalopram 10 mg Tablet 20 MG PO (17:42)
[2023-01-14] VITALS (8 sets, daily range): BP systolic 99–170; BP diastolic 58–81; PULSE 40–64; RESP 14–17; TEMP 36.4–36.9; O2SAT 97–100
[2023-01-14] MEDS: pantoprazole 40 mg SDV IVP ×2 (01:33→13:44)
[2023-01-14] MEDS: ondansetron 2 mg/ML SDV 2 mL 4 MG IVP ×3 (03:28→18:36)
[2023-01-14] MEDS: LORazepam 2 mg/mL INJ 1 mL 0.5 MG IVP ×3 (03:48→18:39)
[2023-01-14] MEDS: morphine 4 mg/mL SDV 1 mL 2 MG IVP (04:27)
[2023-01-14 04:52] LABS: Basophils % 0.2 %; Hematocrit 26.9 % (36-47); Lymphocytes # 1.1 10^3/uL (0.8-4.8); Lymphocytes % 13.4 %; Mean Corpuscular HGB Conc 27.9 g/dL (30-55); Mean Corpuscular Hemoglobin 18.8 pg (27-33); Mean Corpuscular Volume 67.3 fl (85-98); Mean Platelet Volume 8.7 fL (7.4-10.4); Monocytes # 0.8 10^3/uL (0.2-0.9); Monocytes % 10.2 %; Neutrophils # 6.26 10^3/uL (1.8-7.7); Neutrophils % 75.7 %; Nucleated Red Blood Cells % 0 %; Platelet Count 328 10^3/cmm (157-399); Red Cell Distribution Width 21.1 % (12.1-15.1); White Blood Count 8.27 10^3/uL (3.29-11.43)
[2023-01-14 05:15] LABS: Alanine Aminotransferase 8 U/L (0-33); Albumin Level 3.2 g/dL (3.5-5.2); Alkaline Phosphatase 66 U/L (35-105); Anion Gap 17.5 (5-19); Aspartate Amino Transferase 14 U/L (0-32); Blood Urea Nitrogen 10 mg/dL (6-20); Carbon Dioxide 19 mmol/L (22-29); Chloride 113 mmol/L (98-107); Globulin 2.5 g/dL (1.3-4.6); Glomerular Filtration Rate 113.8 mL/min (90-130); Glucose 99 mg/dL (65-115); Magnesium 2.1 mg/dL (1.7-2.3); Osmolality Calculated 301 mOsm/kg (285-295); Potassium 3.5 mmol/L (3.5-5.1); Sodium 146 mmol/L (136-145); Total Bilirubin 0.5 mg/dL (0.15-1.2); Total Protein 5.7 g/dL (6.6-8.7)
[2023-01-14 05:58] LABS: Slide Review Slide Review Perform
--- NOTE | 2023-01-14 06:29 | PC.NURSE ---
patient gave verbal permission to discuss care with her father Junior and step mother Marielos. # [phone]
--- NOTE | 2023-01-14 08:14 | PM.PN ---
Subjective Subjective: Raven reports she had some loose stool yesterday. She does not believe there was any blood. Her abdomen still hurts but feels better. She has some slight nausea but would like to try to go ahead and take some liquid and. She denies any vomiting. Medications: Reviewed: Yes Vitals/I&O/Wt Last Vital Signs Temp 97.7 F 01/14/23 07:18 Pulse 52 L 01/14/23 07:18 Resp 15 01/14/23 07:18 BP 115/60 01/14/23 07:18 Pulse Ox 99 01/14/23 07:18 O2 Del Method Room Air 01/14/23 03:47 01/13/23 01/14/23 01/14/23 22:59 06:59 14:59 Intake Total 100 / 1139.293 845 / 1983.293 Balance 100 / 1139.293 845 / 1983.293 Weight last 48 hrs Weight 49.895 kg Physical Exam Narrative: General exam no distress Neck is supple no lymphadenopathy thyromegaly Cardiovascular regular rate and rhythm, no murmur Lungs clear without wheezing or crackles Abdomen is soft. Tenderness in the epigastric area. No obvious organomegaly Extremities no cyanosis clubbing edema, cap refill brisk Data 01/14/23 04:43 01/14/23 04:43 Micro: Microbiology 01/13/23 13:25 Blood Culture - Preliminary Blood SPECIMEN COLLECTED 01/13/23 13:17 Blood Culture - Preliminary Blood SPECIMEN COLLECTED A&P Assessment and plan (1) Inflammatory bowel disease: Patient presents with significant exacerbation of her inflammatory bowel disease. She was told she has ulcerative colitis in the past, but has evidence of some small bowel inflammation on CT. White blood cell count is improving. She states she has less pain. Discussed with her the limitations here at the hospital including that we do not have GI services. At this point they agree for admission and treatment here. Risks and benefits were discussed. Continue Zosyn IV. Continue Solu-Medrol 60 mg IV every 24 hours Initiated clear liquid diet. If this is tolerated consider advancing Blood cultures collected Awaiting C. difficile and stool cultures C. difficile toxin stool Continue hydration CBC, CMP tomorrow (2) Hyperemesis: Continue Protonix 40 mg IV every 12 hours Nausea control with Zofran (3) Anemia: Significantly anemic. Discussed possibility of transfusion if hemoglobin less than 7, or becomes symptomatic Profoundly iron deficient. Iron transfusion today. Consider repeat tomorrow. Hemoglobin did decrease from admission but I suspect this is secondary to dilution from hydration. Plan PTSD/severe anxiety. Ativan as needed. Start her Lexapro. Psychiatric consultation planned for today. Other medical problems as outlined in past medical history Full code SCDs for DVT prophylaxis. Pharmacologic anticoagulation contraindicated secondary to blood in stool and anemia. Possible discharge in the next 1 to 2 days Attestations Medical Necessity Statement*: Needs continued hospitalization secondary to exacerbation of Crohn's disease, with intent to initiate diet today. Diagnoses Inflammatory bowel disease K52.9 Hyperemesis R11.10 Anemia D64.9 Time Spent (min) 20
[2023-01-14] MEDS: piperacillin-tazobactam 3.375 GM in sodium chloride 0.9% (plus) 50 ML IV ×3 (08:20→23:10)
[2023-01-14] MEDS: iron sucrose 200 MG in sodium chloride 0.9% (100 ml) 100 ML 220 MG IV (10:19)
[2023-01-14] MEDS: sodium chloride 0.9% 1,000 ML 100 ML IV ×2 (10:20→23:07)
[2023-01-14] MEDS: methylPREDNISolone sod succ 60 MG in water for injection-sterile 0.96 ML 11.52 MG IVP (13:45)
--- NOTE | 2023-01-14 17:30 | P.NPUCON_ITS ---
Providers/Reason for Consult Consulting Physican/Specialty*: Ant Lin MD/Psychiatry Reason for Consult*: anxiety and depression Attending Physician: Rodriguez Burns MD Psych Consult HPI History of Present Illness Raven Carrillo is a 37 year old female who was admitted with IBD, and current anemia. The patient had requested to have help with her current problems with anxiety. She was able to provide reasonable history today. She had stated that she had been struggling with depression and particular problems with generalized anxiety disorder for several years. She had reported one particular event in November 2019 where she had had a umbilical hernia that appeared to be potentially constricted and eventually ended up being very painful and required surgical intervention. She had reported that this event in November 2019 had been traumatic and when another event occurred in October of this year regarding her got she had become paralyzed and was overwhelmed by anxiety and unable to engage in treatment. Patient endorses no prior history of suicide attempts. She reports no use of drugs or alcohol. She had reported that she has struggled for many years of her life with low energy and low motivation. She had stated that she had also begun to suffer from panic attacks infrequently and states that she had felt disabled by her significant anxiety. She reports that she feels that her anxiety and depression often appear to be related to her IBD and states that she often feels out of control. She had endorsed difficulties with falling asleep and staying asleep. She did not endorse any clear nightmares or flashbacks but did report some avoidance of places and things that remind her of her traumatic hospital event that occurred in November 2019. Patient had reported only partial relief of anxiety on her current medications at this time. Inpatient psychiatric history: None Outpatient psychiatric history: She had reported trials on medications to target depression and anxiety but currently is not receiving any services although she had been receiving outpatient psychotherapy in [place] where she had resided until less than a month ago. Drug and alcohol history: None she had admitted to recreational use of marijuana but states that she had, about to stop taking this medication since moving to [place]. Allergies: No known drug allergies Psychiatric medications: Wellbutrin XL 1 or 50 mg in the morning, Lexapro 20 mg at night. Family psychiatric history: Unknown. Social history: Patient reports that she was born in [facility]. Shortly after her her mother had apparently lead with her to another state. She was reportedly found and removed from her mother's care and lived with her biological father but not after having spent 2 years from the ages of 3 months till 4 years of age in foster care along with her biological brother who is 3 years older than her. She states that her mother and father had moved around throughout much of her life. She did not endorse any sexual physical or emotional abuse during childhood. She had graduated high school and previously worked in an [employer] She reports that she moved to [facility] 3 weeks ago with her of several years. She has 2 children ages 11 and 7. She reports being currently unemployed. She reports no history of legal problems at this time. Meds Home Medications and Allergies Home Medications Medication Instructions Recorded Confirmed Last Taken Type metronidazole 250 mg tablet 250 mg PO TID #21 tabs 01/11/23 01/13/23 Unknown Rx prednisone 20 mg tablet 20 mg PO BID 7 days #14 tabs 01/11/23 01/13/23 Unknown Rx bupropion HCl 150 mg 24 hr tablet, 150 mg PO QAM 01/13/23 01/13/23 Unknown History extended release (Wellbutrin XL) escitalopram oxalate 20 mg tablet 20 mg PO QPM 01/13/23 01/13/23 Unknown History (Lexapro) Allergies Allergy/AdvReac Type Severity Reaction Status Date / Time No Known Allergies Allergy Verified 01/13/23 07:56 Current Medications Current Medications Generic Name Dose Route Start Last Admin Trade Name Freq PRN Reason Stop Dose Admin Escitalopram Oxalate 20 mg 01/13/23 18:00 01/13/23 17:42 Escitalopram 10 Mg Tablet PO 20 mg QPM PTARICK Administration Methylprednisolone Sodium 0.96 mls @ 11.52 mls/hr 01/13/23 12:45 01/14/23 14:38 Succinate 60 mg/ Sterile Water IVP Infused Q24H PATRICK Infusion Piperacillin Sod/Tazobactam 50 mls @ 12.5 mls/hr 01/13/23 13:00 01/14/23 16:04 Sod 3.375 gm/ Sodium Chloride IV Infused Q8H PATRICK Infusion Protocol As Directed Sodium Chloride 1,000 mls @ 100 mls/hr 01/13/23 13:50 01/14/23 10:20 Sodium Chloride 0.9% IV 100 mls/hr .Q10H PATRICK Administration Lorazepam 0.5 mg 01/13/23 13:50 01/14/23 11:14 Lorazepam 2 Mg/Ml Inj 1 Ml IVP 0.5 mg Q6H PRN Administration ANXIETY Morphine Sulfate 2 mg 01/13/23 13:50 01/14/23 04:27 Morphine 4 Mg/Ml Sdv 1 Ml IVP 2 mg Q4H PRN Administration SEVERE PAIN Ondansetron HCl 4 mg 01/13/23 13:50 01/14/23 11:14 Ondansetron 2 Mg/Ml Sdv 2 Ml IVP 4 mg Q6H PRN Administration vomiting, or N/V if npo Pantoprazole Sodium 40 mg 01/13/23 13:50 01/14/23 13:44 Pantoprazole 40 Mg Sdv IVP 40 mg Q12H PATRICK Administration PFSH NPU PFSH: Medical History (Updated 01/14/23 @ 17:45 by Ant Lin MD) Anxiety PTSD (post-traumatic stress disorder) Surgical History (Updated 01/13/23 @ 12:49 by Rodriguez Burns MD) H/O congenital atrial septal defect (ASD) repair History of History of hemorrhoidectomy History of hernia repair Family History (Updated 01/13/23 @ 12:49 by Rodriguez Burns MD) Other Psychiatric illness Social History (Updated 01/13/23 @ 12:50 by Rodriguez Burns MD) Alcohol intake: never Substance/Drug Use: current Mental Status Exam MSE Comments: Patient is a thin white female who appeared somewhat under nourished and pale. Her gait was not tested. Her hygiene was fair. There was no evidence of any abnormal involuntary motor movements tics or tremors appreciated. Her speech was normal in regards to rate rhythm and prosody. Her thought process was linear logical goal-directed. Her thought content showed no evidence of active homicidal or suicidal ideation. She did not appear to be responding internal stimuli. There was no evidence of delusional thinking. There was an overall sense of hopelessness that was noted as a theme. She was a good historian. Her mood was described as anxious. Her affect was mood congruent and tearful at times. Her insight is fair. Her judgment is fair. her impulse control appeared adequate. Recent terminal memory were grossly intact. Vitals/I&O/Wt Last Vital Signs Temp 97.7 F 01/14/23 07:18 Pulse 40 L 01/14/23 16:00 Resp 15 01/14/23 16:00 BP 133/60 01/14/23 16:00 Pulse Ox 100 01/14/23 16:00 O2 Del Method Room Air 01/14/23 03:47 01/14/23 01/14/23 01/14/23 06:59 14:59 22:59 Intake Total 845 19839615.833 1998.96 / 1195.96 25 / 1220.96 Balance 845 / 9986.232 8157.96 / 1195.96 25 / 1220.96 Weight last 48 hrs Weight 49.895 kg Data NPU 01/14/23 04:43 01/14/23 04:43 Micro: Microbiology 01/13/23 13:25 Blood Culture - Preliminary Blood NEGATIVE TO DATE 01/13/23 13:17 Blood Culture - Preliminary Blood NEGATIVE TO DATE Microbiology 01/13/23 13:25 Blood Blood Culture - Preliminary NEGATIVE TO DATE 01/13/23 13:17 Blood Blood Culture - Preliminary NEGATIVE TO DATE A&P Assessment and plan (1) Inflammatory bowel disease: (2) Pancolitis: (3) Hyperemesis: (4) Anemia: (5) Dysthymia: (6) SERENA (generalized anxiety disorder): Plan 37-year-old white female history of autoimmune disease, inflammatory bowel disease with depression and anxiety. Patient may likely benefit from medications that would reduce anxiety as this is likely to improve outcome with her inflammatory bowel disease. Patient had reported no improvement on Lexapro despite taking it for several months. My recommendation would be to reduce this medication and began a medication such as Zoloft first to target anxiety and depression as there is a greater latitude for adjustment with this medication. Furthermore given the patient's lack of addiction potential it may be mcdaniel to consider long-term use of benzodiazepines that have been found to be helpful for people with irritable bowel syndrome including Xanax which I would recommend. I will continue to follow. trial xanax .5mg tid reduce lexapro to 10mg x3 days then discontinue Begin zoloft 25mg tommorow. Attestations NPU Medical Necessity Statement*: NA Coding Level of Care Code Acute Code for Chg Fwd Diagnoses Inflammatory bowel disease K52.9 Pancolitis K51.00 Hyperemesis R11.10 Anemia D64.9 Dysthymia F34.1 SERENA (generalized anxiety disorder) F41.1
[2023-01-14] MEDS: escitalopram 10 mg Tablet PO (18:37)
--- NOTE | 2023-01-14 22:24 | PC.NURSE ---
Patient's step mother called for an update, nurse informed her that she is not on the PHI form and no information could be released without consent from the patient. Step mother stated she did not want nurse to wake patient to ask for permission.
[2023-01-14] MEDS: ALPRAZolam 0.5 mg Tablet PO (23:06)
[2023-01-15] VITALS (7 sets, daily range): BP systolic 116–156; BP diastolic 64–72; PULSE 46–63; RESP 16–20; TEMP 36.3–37; O2SAT 96–100
[2023-01-15] MEDS: morphine 4 mg/mL SDV 1 mL 2 MG IVP ×2 (00:40→20:56)
[2023-01-15] MEDS: ondansetron 2 mg/ML SDV 2 mL 4 MG IVP ×2 (00:41→18:49)
[2023-01-15] MEDS: pantoprazole 40 mg SDV IVP ×2 (02:54→13:32)
[2023-01-15] MEDS: metroNIDAZOLE IV 500 MG/100 ML PREMIX 100 MG IV (04:38)
[2023-01-15 05:40] LABS: Basophils % 0.1 %; Hematocrit 30.2 % (36-47); Lymphocytes # 1.3 10^3/uL (0.8-4.8); Lymphocytes % 18.4 %; Mean Corpuscular HGB Conc 28.1 g/dL (30-55); Mean Corpuscular Hemoglobin 18.9 pg (27-33); Mean Corpuscular Volume 67.1 fl (85-98); Mean Platelet Volume 9.1 fL (7.4-10.4); Monocytes # 0.7 10^3/uL (0.2-0.9); Monocytes % 10.3 %; Neutrophils # 4.72 10^3/uL (1.8-7.7); Neutrophils % 69.6 %; Nucleated Red Blood Cells % 0 %; Platelet Count 399 10^3/cmm (157-399); Red Cell Distribution Width 21.1 % (12.1-15.1); White Blood Count 6.79 10^3/uL (3.29-11.43)
[2023-01-15 06:05] LABS: Anion Gap 12.3 (5-19); Blood Urea Nitrogen 5 mg/dL (6-20); Calcium 7.7 mg/dL (8.5-10.5); Carbon Dioxide 27 mmol/L (22-29); Chloride 105 mmol/L (98-107); Glomerular Filtration Rate 140.4 mL/min (90-130); Glucose 84 mg/dL (65-115); Magnesium 1.9 mg/dL (1.7-2.3); Osmolality Calculated 288 mOsm/kg (285-295); Potassium 3.3 mmol/L (3.5-5.1); Sodium 141 mmol/L (136-145)
[2023-01-15] MEDS: piperacillin-tazobactam 3.375 GM in sodium chloride 0.9% (plus) 50 ML IV ×2 (08:21→15:38)
[2023-01-15] MEDS: ALPRAZolam 0.5 mg Tablet PO ×3 (08:22→21:48)
[2023-01-15] MEDS: buPROPion XL (24 HR) 150 mg Tablet PO (08:22)
[2023-01-15] MEDS: sodium chloride 0.9% 1,000 ML 100 ML IV ×2 (09:32→21:48)
[2023-01-15] MEDS: iron sucrose 200 MG in sodium chloride 0.9% (100 ml) 100 ML 220 MG IV (09:32)
[2023-01-15] MEDS: methylPREDNISolone sod succ 60 MG in water for injection-sterile 0.96 ML 11.25 MG IVP (13:33)
--- NOTE | 2023-01-15 15:43 | P.NPUPN_ITS ---
Subjective NPU Subjective: 37-year-old white female with recent exacerbation of her IBD, and active anemia admitted with increased pain. Patient had described having significant anxiety and depression. The patient had reported an understanding that her anxiety and depression often played a significant role in worsening her symptoms. She had reported some reduction in anxiety with the initiation of Xanax at 0.5 mg 3 times a day. She reported no withdrawal symptoms from the reduction in Lexapro last night. She was agreeable to starting Zoloft after Lexapro was discontinued in 2 days. Mental Status Exam MSE Comments: Patient is a thin white female who appeared somewhat under nourished and pale. Her gait was not tested. Her hygiene was fair. There was no evidence of any abnormal involuntary motor movements tics or tremors appreciated. Her speech was normal in regards to rate rhythm and prosody. Her thought process was linear logical goal-directed. Her thought content showed no evidence of active homicidal or suicidal ideation. She did not appear to be responding internal stimuli. There was no evidence of delusional thinking. She was a good historian. Her mood was described as okay. Her affect was less anxious. Her insight is fair. Her judgment is fair. her impulse control appeared adequate. Recent and remote memory were grossly intact. Vitals/I&O/Wt Last Vital Signs Temp 98.3 F 01/15/23 11:49 Pulse 46 L 01/15/23 11:49 Resp 16 01/15/23 11:49 BP 153/72 01/15/23 11:49 Pulse Ox 100 01/15/23 11:49 O2 Del Method Room Air 01/15/23 11:49 01/15/23 01/15/23 01/15/23 06:59 14:59 22:59 Intake Total 50 / 2620.96 1260.96 / 1260.96 Balance 50 / 2620.96 1260.96 / 1260.96 Data NPU 01/15/23 05:10 01/15/23 05:10 Micro: Microbiology 01/14/23 15:23 Enteric Pathogens (PCR) - Final Stool Clostridioides difficile Toxins A&B (PCR) - Final C.difficile Toxin B Gene (PCR) - Final 01/13/23 13:25 Blood Culture - Preliminary Blood NEGATIVE TO DATE 01/13/23 13:17 Blood Culture - Preliminary Blood NEGATIVE TO DATE Microbiology 01/14/23 15:23 Stool Enteric Pathogens (PCR) - Final 01/14/23 15:23 Stool Clostridioides difficile Toxins A&B (PCR) - Final 01/14/23 15:23 Stool C.difficile Toxin B Gene (PCR) - Final 01/13/23 13:25 Blood Blood Culture - Preliminary NEGATIVE TO DATE 01/13/23 13:17 Blood Blood Culture - Preliminary NEGATIVE TO DATE A&P Assessment and plan (1) Inflammatory bowel disease: (2) Pancolitis: (3) Hyperemesis: (4) Anemia: (5) Dysthymia: (6) SERENA (generalized anxiety disorder): Plan 37-year-old white female history of autoimmune disease, inflammatory bowel disease with depression and anxiety. Patient may likely benefit from medications that would reduce anxiety as this is likely to improve outcome with her inflammatory bowel disease. Patient had reported no improvement on Lexapro despite taking it for several months. My recommendation would be to reduce this medication and began a medication such as Zoloft first to target anxiety and dep ression as there is a greater latitude for adjustment with this medication. Furthermore given the patient's lack of addiction potential it may be mcdaniel to consider long-term use of benzodiazepines that have been found to be helpful for people with irritable bowel syndrome including Xanax which I would recommend. I will continue to follow. continue xanax .5mg tid continue lexapro 10mg x 3 days then discontinue. Begin zoloft 25mg in am. Attestations NPU Medical Necessity Statement*: NA Coding Level of Care Code Acute Code for [facility] Diagnoses Inflammatory bowel disease K52.9 Pancolitis K51.00 Hyperemesis R11.10 Anemia D64.9 Dysthymia F34.1 SERENA (generalized anxiety disorder) F41.1
--- NOTE | 2023-01-15 15:53 | PM.PN ---
Subjective Subjective: Patient was seen this morning, no fevers, no chills, continues to have poor appetite, and as diffuse abdominal pain, has had small bowel movements, C. difficile positive overnight Vitals/I&O/Wt Last Vital Signs Temp 98.2 F 01/15/23 15:45 Pulse 49 L 01/15/23 15:45 Resp 16 01/15/23 15:45 BP 116/64 01/15/23 15:45 Pulse Ox 96 01/15/23 15:45 O2 Del Method Room Air 01/15/23 15:45 01/15/23 01/15/23 01/15/23 06:59 14:59 22:59 Intake Total 50 / 2620.96 1260.96 / 1260.96 Balance 50 / 2620.96 1260.96 / 1260.96 Physical Exam Const: COMMON NORMALS: no acute distress and patient oriented x3 Resp: COMMON NORMALS: normal respiratory effort, No retractions, No use of accessory muscles and clear to auscultation bilaterally AUSCULTATION: clear to auscultation bilaterally Cardio: COMMON NORMALS: regular rate, regular rhythm, S1 normal heart sound present and S2 normal heart sound present RATE: regular rate RHYTHM: regular rhythm HEART SOUNDS: S1 normal heart sound present and S2 normal heart sound present GI: COMMON NORMALS: Normal to inspection, nondistended, normoactive bowel sounds present and non-tender Extremity: COMMON NORMALS: no pedal edema Neuro: COMMON NORMALS: patient oriented x3 Psych: COMMON NORMALS: mental status grossly normal Data 01/15/23 05:10 01/15/23 05:10 Micro: Microbiology 01/14/23 15:23 Enteric Pathogens (PCR) - Final Stool Clostridioides difficile Toxins A&B (PCR) - Final C.difficile Toxin B Gene (PCR) - Final 01/13/23 13:25 Blood Culture - Preliminary Blood NEGATIVE TO DATE 01/13/23 13:17 Blood Culture - Preliminary Blood NEGATIVE TO DATE A&P Assessment and plan (1) Inflammatory bowel disease: Patient presents with significant exacerbation of her inflammatory bowel disease. She was told she has ulcerative colitis in the past, but has evidence of some small bowel inflammation on CT. White blood cell count is improving. She states she has less pain. Discussed with her the limitations here at the hospital including that we do not have GI services. At this point they agree for admission and treatment here. Risks and benefits were discussed. Continue Zosyn IV. Continue Solu-Medrol 60 mg IV every 24 hours Initiated clear liquid diet. If this is tolerated consider advancing Blood cultures collected Continue hydration CBC, CMP tomorrow (2) Hyperemesis: Continue Protonix 40 mg IV every 12 hours Nausea control with Zofran (3) Anemia: Significantly anemic. Discussed possibility of transfusion if hemoglobin less than 7, or becomes symptomatic Profoundly iron deficient. Status post second unit of IV iron Hemoglobin did decrease from admission but I suspect this is secondary to dilution from hydration. (4) C. difficile colitis: Will start p.o. vancomycin Plan PTSD/severe anxiety. Ativan as needed. Start her Lexapro. Psychiatric consultation planned for today. Other medical problems as outlined in past medical history Full code SCDs for DVT prophylaxis. Pharmacologic anticoagulation contraindicated secondary to blood in stool and anemia. Possible discharge in the next 1 to 2 days Attestations Medical Necessity Statement*: Patient requires hospitalization for C. difficile colitis, exacerbation of ulcerative colitis Diagnoses Inflammatory bowel disease K52.9 Hyperemesis R11.10 Anemia D64.9 C. difficile colitis A04.72
[2023-01-15] MEDS: escitalopram 10 mg Tablet PO (18:04)
[2023-01-16] VITALS (9 sets, daily range): BP systolic 105–157; BP diastolic 64–84; PULSE 45–63; RESP 16–19; TEMP 36.5–36.8; O2SAT 98–100
[2023-01-16] MEDS: piperacillin-tazobactam 3.375 GM in sodium chloride 0.9% (plus) 50 ML IV (00:16)
[2023-01-16] MEDS: pantoprazole 40 mg SDV IVP (01:24)
[2023-01-16 05:16] LABS: Basophils % 0.2 %; Hematocrit 30.4 % (36-47); Lymphocytes # 0.7 10^3/uL (0.8-4.8); Lymphocytes % 13.6 %; Mean Corpuscular HGB Conc 28.6 g/dL (30-55); Mean Corpuscular Hemoglobin 18.9 pg (27-33); Mean Corpuscular Volume 66.1 fl (85-98); Mean Platelet Volume 9.2 fL (7.4-10.4); Monocytes # 0.5 10^3/uL (0.2-0.9); Monocytes % 10.1 %; Neutrophils # 3.99 10^3/uL (1.8-7.7); Neutrophils % 74.2 %; Nucleated Red Blood Cells % 0 %; Platelet Count 352 10^3/cmm (157-399); Red Cell Distribution Width 20.6 % (12.1-15.1); White Blood Count 5.37 10^3/uL (3.29-11.43)
[2023-01-16 05:44] LABS: Anion Gap 12.9 (5-19); Blood Urea Nitrogen 3 mg/dL (6-20); Calcium 8.3 mg/dL (8.5-10.5); Carbon Dioxide 29 mmol/L (22-29); Chloride 101 mmol/L (98-107); Glomerular Filtration Rate 140.4 mL/min (90-130); Glucose 85 mg/dL (65-115); Osmolality Calculated 286 mOsm/kg (285-295); Sodium 140 mmol/L (136-145)
[2023-01-16 05:50] LABS: Potassium 2.9 mmol/L (3.5-5.1)
[2023-01-16 06:16] LABS: Magnesium 1.9 mg/dL (1.7-2.3)
[2023-01-16] MEDS: potassium chloride oral liq 20 mEq/15 mL UDC 40 MEQ PO (06:25)
[2023-01-16] MEDS: potassium chloride premix 100 ML 25 MEQ IV (06:25)
[2023-01-16] MEDS: sodium chloride 0.9% 1,000 ML 100 ML IV (06:25)
[2023-01-16] MEDS: sertraline 50 mg Tablet 25 MG PO (08:33)
[2023-01-16] MEDS: buPROPion XL (24 HR) 150 mg Tablet PO (08:33)
[2023-01-16] MEDS: ALPRAZolam 0.5 mg Tablet PO (08:33)
--- NOTE | 2023-01-16 13:00 | P.PN_ITS ---
Subjective Subjective: Patient was in this morning, she continues to feel a bit nauseated, no nausea, no vomiting, has had small bowel movements, no fevers, no chills, continues to feel ill but feels better overall Vitals/I&O/Wt Last Vital Signs Temp 97.8 F 01/16/23 11:42 Pulse 49 L 01/16/23 11:42 Resp 17 01/16/23 11:42 BP 143/78 01/16/23 11:42 Pulse Ox 99 01/16/23 11:42 O2 Del Method Room Air 01/16/23 11:42 01/15/23 01/16/23 01/16/23 22:59 06:59 14:59 Intake Total 1050 / 2310.96 1031.667 / 3342.627 781.250 / 781.250 Balance 1050 / 2310.96 1031.667 / 3342.627 781.250 / 781.250 Physical Exam Const: COMMON NORMALS: no acute distress and patient oriented x3 Resp: COMMON NORMALS: normal respiratory effort, No retractions, No use of accessory muscles and clear to auscultation bilaterally AUSCULTATION: clear to auscultation bilaterally Cardio: COMMON NORMALS: regular rate, regular rhythm, S1 normal heart sound present and S2 normal heart sound present RATE: regular rate RHYTHM: regular rhythm HEART SOUNDS: S1 normal heart sound present and S2 normal heart sound present GI: COMMON NORMALS: Normal to inspection, nondistended, normoactive bowel sounds present and non-tender Extremity: COMMON NORMALS: no pedal edema Neuro: COMMON NORMALS: patient oriented x3 Psych: COMMON NORMALS: mental status grossly normal Data 01/16/23 04:45 01/16/23 04:45 Micro: Microbiology 01/14/23 15:23 Enteric Pathogens (PCR) - Final Stool Clostridioides difficile Toxins A&B (PCR) - Final C.difficile Toxin B Gene (PCR) - Final A&P Assessment and plan (1) Inflammatory bowel disease: Patient presents with significant exacerbation of her inflammatory bowel disease. She was told she has ulcerative colitis in the past, but has evidence of some small bowel inflammation on CT. White blood cell count is improving. She states she has less pain. Discussed with her the limitations here at the hospital including that we do not have GI services. At this point they agree for admission and treatment here. Risks and benefits were discussed. Stop Zosyn Switch to p.o. prednisone Transition to full liquid Blood cultures collected Continue hydration CBC, CMP tomorrow (2) Hyperemesis: P.o. Protonix Nausea control with Zofran (3) Anemia: Significantly anemic. Discussed possibility of transfusion if hemoglobin less than 7, or becomes symptomatic Profoundly iron deficient. Will give 30 unit IV iron Hemoglobin did decrease from admission but I suspect this is secondary to d ilution from hydration. Patient will need to be set up with GI as outpatient for EGD and colonoscopy, doubt that she could have a colonoscopy during this hospitalization due to concerns for risk of colon perforation with her flare of inflammatory bowel disease (4) C. difficile colitis: Continue p.o. vancomycin Plan PTSD/severe anxiety. Ativan as needed. Start her Lexapro. Psychiatric consultation planned for today. Other medical problems as outlined in past medical history Full code SCDs for DVT prophylaxis. Pharmacologic anticoagulation contraindicated secondary to blood in stool and anemia. Possible discharge in the next 1 to 2 days Attestations Medical Necessity Statement*: Patient requires hospitalization due to anemia, inflammatory bowel disease exacerbation, C. difficile colitis Diagnoses Inflammatory bowel disease K52.9 Hyperemesis R11.10 Anemia D64.9 C. difficile colitis A04.72
[2023-01-16] MEDS: potassium chloride oral liq 20 mEq/15 mL UDC PO (13:08)
--- NOTE | 2023-01-16 14:00 | ECG_ITS ---
[facility] Test Date: 2023-01-16 Pat Name: Raven Carrillo Department: Room: 259 Gender: Female [employer]: : 1985 Requested By: Jordan Sanchez Order Number: [id number] Reading MD: Markus Whitfield Measurements Intervals [place] Rate: 57 P: 5 DE: 133 QRS: -9 QRSD: 89 T: -28 QT: 472 QTc: 462 Interpretive Statements SINUS BRADYCARDIA POSSIBLE RIGHT VENTRICULAR CONDUCTION DELAY [RSR (QR) IN V1/V2] No previous ECG available for comparison Electronically Signed On 01-16-2023 17:00:54 CDT by Markus Whitfield [id number]
[2023-01-16] MEDS: iron sucrose 200 MG in sodium chloride 0.9% (100 ml) 100 ML 220 MG IV (15:39)
--- NOTE | 2023-01-16 16:28 | P.NPUPN_ITS ---
Subjective NPU Subjective: 37-year-old white female with recent exacerbation of her IBD, and active anemia admitted with increased pain. Patient reported improved mood. She continued to report some pain issues. She reported no worsening anxiety. She reported no side effects from her Zoloft. She had expressed some interest in cognitive behavioral therapy as patient was informed about its potential benefit at redu cing exacerbations of inflammatory bowel disease. Mental Status Exam MSE Comments: Patient is a thin white female who appeared somewhat under nourished and pale. Her gait was not tested. Her hygiene was fair. There was no evidence of any abnormal involuntary motor movements tics or tremors appreciated. Her speech was normal in regards to rate rhythm and prosody. Her thought process was linear logical goal-directed. Her thought content showed no evidence of active homicidal or suicidal ideation. She did not appear to be responding internal stimuli. There was no evidence of delusional thinking. She was a good historian. Her mood was described as all right.. Her affect was anxious.. Her insight is fair. Her judgment is fair. her impulse control appeared adequate. Recent and remote memory were grossly intact. Vitals/I&O/Wt Last Vital Signs Temp 98.2 F 01/17/23 12:00 Pulse 58 L 01/17/23 12:00 Resp 16 01/17/23 12:00 BP 104/52 01/17/23 12:00 Pulse Ox 99 01/17/23 12:00 O2 Del Method Room Air 01/16/23 16:00 01/17/23 01/17/23 01/17/23 06:59 14:59 22:59 Intake Total 240 / 1491.250 600 / 600 Balance 240 / 1491.250 600 / 600 Data NPU 01/17/23 04:36 01/17/23 04:36 A&P Assessment and plan (1) Inflammatory bowel disease: (2) Pancolitis: (3) Hyperemesis: (4) Anemia: (5) Dysthymia: (6) SERENA (generalized anxiety disorder): Plan 37-year-old white female history of autoimmune disease, inflammatory bowel disease with depression and anxiety. Patient may likely benefit from medications that would reduce anxiety as this is likely to improve outcome with her inflammatory bowel disease. Patient had reported no improvement on Lexapro despite taking it for several months. My recommendation would be to reduce this medication and began a medication such as Zoloft first to target anxiety and depression as there is a greater latitude for adjustment with this medication. Furthermore given the patient's lack of addiction potential it may be mcdaniel to consider long-term use of benzodiazepines that have been found to be helpful for people with irritable bowel syndrome including Xanax which I would recommend. I will continue to follow. continue xanax .25mg tid- Would recommend intermediate manager use of this medication, she has no addiction history and this may provide sustantial improvement until patient is able to find CBT on weekly basis. Continue zoloft 25mg in am with plan for increase to 50mg in 4-5 days. Attestations NPU Medical Necessity Statement*: NA Coding Level of Care Code Acute Code for g Fwd Diagnoses Inflammatory bowel disease K52.9 Pancolitis K51.00 Hyperemesis R11.10 Anemia D64.9 Dysthymia F34.1 SERENA (generalized anxiety disorder) F41.1
[2023-01-16 16:50] LABS: Blood Urea Nitrogen 3 mg/dL (6-20); Calcium 8.7 mg/dL (8.5-10.5); Carbon Dioxide 29 mmol/L (22-29); Chloride 103 mmol/L (98-107); Glomerular Filtration Rate 140.4 mL/min (90-130); Glucose 93 mg/dL (65-115); Osmolality Calculated 290 mOsm/kg (285-295); Sodium 142 mmol/L (136-145)
[2023-01-16 17:07] LABS: Anion Gap 13.3 (5-19); Potassium 3.3 mmol/L (3.5-5.1)
[2023-01-16] MEDS: escitalopram 10 mg Tablet PO (17:39)
[2023-01-16] MEDS: ALPRAZolam 0.5 mg Tablet 0.25 MG PO (22:03)
[2023-01-17 04:06] VITALS: BP 111/70; PULSE 50; RESP 16; TEMP 36.6; O2SAT 99
[2023-01-17 05:40] LABS: Basophils % 0.7 %; Eosinophils % 0.2 %; Hematocrit 33.3 % (36-47); Lymphocytes % 18.5 %; Mean Corpuscular HGB Conc 28.2 g/dL (30-55); Mean Corpuscular Volume 67.4 fl (85-98); Mean Platelet Volume 9.6 fL (7.4-10.4); Monocytes # 0.5 10^3/uL (0.2-0.9); Monocytes % 9.5 %; Neutrophils # 3.81 10^3/uL (1.8-7.7); Nucleated Red Blood Cells % 0 %; Platelet Count 351 10^3/cmm (157-399); Red Blood Count 4.94 10^6/uL (3.85-5.65); Red Cell Distribution Width 21.2 % (12.1-15.1); White Blood Count 5.45 10^3/uL (3.29-11.43)
[2023-01-17 05:57] LABS: Anion Gap 11.6 (5-19); Blood Urea Nitrogen 4 mg/dL (6-20); Calcium 8.5 mg/dL (8.5-10.5); Carbon Dioxide 33 mmol/L (22-29); Chloride 103 mmol/L (98-107); Glomerular Filtration Rate 140.4 mL/min (90-130); Glucose 83 mg/dL (65-115); Osmolality Calculated 294 mOsm/kg (285-295); Potassium 3.6 mmol/L (3.5-5.1); Sodium 144 mmol/L (136-145)
[2023-01-17 08:00] VITALS: BP 95/60; PULSE 65; RESP 16; TEMP 36.5; O2SAT 100
[2023-01-17] MEDS: pantoprazole DR 40 mg Tablet PO (08:17)
[2023-01-17] MEDS: sertraline 50 mg Tablet 25 MG PO (08:17)
[2023-01-17] MEDS: predniSONE 20 mg Tablet 40 MG PO (08:17)
[2023-01-17] MEDS: ALPRAZolam 0.5 mg Tablet 0.25 MG PO ×2 (08:17→22:02)
[2023-01-17] MEDS: buPROPion XL (24 HR) 150 mg Tablet PO (08:17)
[2023-01-17 12:00] VITALS: BP 104/52; PULSE 58; RESP 16; TEMP 36.8; O2SAT 99
[2023-01-17 16:00] VITALS: BP 103/64; PULSE 63; RESP 16; TEMP 36.8; O2SAT 99
--- NOTE | 2023-01-17 16:08 | P.PN_ITS ---
Subjective Subjective: No new complaints today. Continues to have intermittent episodes of diarrhea. Tolerating a full liquid diet currently, plan to advance today. Medications: Reviewed: Yes Vitals/I&O/Wt Last Vital Signs Temp 98.2 F 01/17/23 12:00 Pulse 58 L 01/17/23 12:00 Resp 16 01/17/23 12:00 BP 104/52 01/17/23 12:00 Pulse Ox 99 01/17/23 12:00 O2 Del Method Room Air 01/16/23 16:00 01/17/23 01/17/23 01/17/23 06:59 14:59 22:59 Intake Total 240 / 1491.250 600 / 600 Balance 240 / 1491.250 600 / 600 Physical Exam Narrative: General: No acute distress, AO x3 HEENT: PERRLA, pupils bilaterally equal and reactive, pallors not present Chest: Normal vesicular breath sounds, no added sounds, equal good air entry bi laterally CVS: S1-S2 regular, no murmurs, no tachycardia, no gallops, no rubs Abdomen: Soft, nontender, no organomegaly, bowel sounds present Neuro: No focal deficits, no facial deformity, AO x3, power 5/5 in all limbs Data 01/17/23 04:36 01/17/23 04:36 A&P Assessment and plan (1) Inflammatory bowel disease: Patient presents with significant exacerbation of her inflammatory bowel disease. She was told she has ulcerative colitis in the past, but has evidence of some small bowel inflammation on CT. White blood cell count is improving. She states she has less pain. Discussed with her the limitations here at the hospital including that we do not have GI services. At this point they agree for admission and treatment here. Risks and benefits were discussed. Continue p.o. prednisone Advance diet to mechanical soft (2) Hyperemesis: P.o. Protonix Nausea control with Zofran Much better controlled today (3) Anemia: Significantly anemic. Status post IV infusion of iron Will need supplemental p.o. iron at discharge (4) C. difficile colitis: Continue p.o. vancomycin This is her seventh episode of C. difficile colitis, has never taken Dificid before. We will attempt to obtain Dificid at discharge Plan PTSD/severe anxiety. Ativan as needed. Start her Lexapro. Psychiatric consultation planned for today. Other medical problems as outlined in past medical history Full code SCDs for DVT prophylaxis. Pharmacologic anticoagulation contraindicated secondary to blood in stool and anemia. Possible discharge in the next 1 to 2 days Attestations Medical Necessity Statement*: Advance diet today, if tolerates anticipate discharge in the upcoming 24 hours. Coding Level of Care Code Acute Code for Chg Fwd Diagnoses Inflammatory bowel disease K52.9 Hyperemesis R11.10 Anemia D64.9 C. difficile colitis A04.72
[2023-01-17] MEDS: ondansetron 2 mg/ML SDV 2 mL 4 MG IVP ×2 (18:11→21:30)
[2023-01-17] MEDS: HYDROcodone-acetaminophen 5-325 mg Tablet 1 TAB PO (19:44)
[2023-01-17 20:03] VITALS: BP 133/89; PULSE 80; RESP 26; TEMP 37; O2SAT 96
[2023-01-17 21:30] VITALS: RESP 16
[2023-01-17] MEDS: HYDROmorphone 1 mg/mL INJ 1 mL IVP (21:30)
[2023-01-18] VITALS (7 sets, daily range): BP systolic 102–120; BP diastolic 53–75; PULSE 49–64; RESP 16–18; TEMP 36.4–37; O2SAT 97–100
[2023-01-18 06:12] LABS: Basophils % 0.3 %; Eosinophils % 0.1 %; Hematocrit 36.2 % (36-47); Lymphocytes # 1.5 10^3/uL (0.8-4.8); Lymphocytes % 19.8 %; Mean Corpuscular HGB Conc 28.2 g/dL (30-55); Mean Corpuscular Hemoglobin 19.1 pg (27-33); Mean Corpuscular Volume 67.7 fl (85-98); Mean Platelet Volume 9.3 fL (7.4-10.4); Monocytes # 0.7 10^3/uL (0.2-0.9); Monocytes % 9.7 %; Neutrophils # 5.22 10^3/uL (1.8-7.7); Neutrophils % 69.3 %; Nucleated Red Blood Cells % 0 %; Platelet Count 383 10^3/cmm (157-399); Red Blood Count 5.35 10^6/uL (3.85-5.65); White Blood Count 7.53 10^3/uL (3.29-11.43)
[2023-01-18 06:28] LABS: Anion Gap 13.3 (5-19); Blood Urea Nitrogen 8 mg/dL (6-20); Calcium 8.9 mg/dL (8.5-10.5); Carbon Dioxide 30 mmol/L (22-29); Chloride 101 mmol/L (98-107); Glomerular Filtration Rate 113.8 mL/min (90-130); Glucose 78 mg/dL (65-115); Osmolality Calculated 289 mOsm/kg (285-295); Potassium 3.3 mmol/L (3.5-5.1); Sodium 141 mmol/L (136-145)
[2023-01-18] MEDS: predniSONE 20 mg Tablet 40 MG PO (08:11)
[2023-01-18] MEDS: pantoprazole DR 40 mg Tablet PO (08:11)
[2023-01-18] MEDS: buPROPion XL (24 HR) 150 mg Tablet PO (08:11)
[2023-01-18] MEDS: ALPRAZolam 0.5 mg Tablet 0.25 MG PO (08:11)
[2023-01-18] MEDS: sertraline 50 mg Tablet 25 MG PO (08:11)
--- NOTE | 2023-01-18 09:33 | PM.DCS ---
Discharge Providers Date of Admission: 01/13/23 12:55 Date of Discharge: January 18, 2023 Attending Provider at Admission: Rodriguez Burns MD Attending Provider at Discharge: Maria Guadalupe Jenkins MD Diagnoses at Discharge Discharge Diagnosis (1) Inflammatory bowel disease: Status: Acute (2) Pancolitis: Status: Acute (3) Hyperemesis: Status: Acute (4) Anemia: Status: Acute (5) Dysthymia: Status: Acute (6) SERENA (generalized anxiety disorder): Status: Acute Reason for Visit Reason for Visit: abd pain, anxiety Hospital Course Hospital Course Raven Carrillo is a 37 year old female presenting to the emergency department with abdominal pain, multiple episodes of vomiting, and diarrhea for the last week.? She was seen in the emergency department on the and given some steroids to take but was unable to take them by mouth secondary to vomiting.? She has a past medical history of inflammatory bowel disease which was diagnosed in 2013 via colonoscopy. But has not been on any treatment for the same. She occasionally has some blood in her stool. CT of her abdomen and pelvis had shown thickening of the distal small bowel with possible longstanding obstruction at the terminal ileum. No abscesses were encountered. Overall impression was that of significant exacerbation of her inflammatory bowel disease. Patient also has a history of C diff with recurrent episodes (estimated 6-7) in the past. She tested C. difficile positive. C. difficile was present on admit. She received treatment with IV steroids, transition to oral steroids during the course of admission. Hospital course was notable for significant anxiety for which she was seen by psychiatry, recommended to add Zoloft and Xanax as needed while titrating off her Wellbutrin. She is also incidentally noted to have asymptomatic sinus bradycardia with heart rate ranging between 40 to 60 bpm. For her anemia, evaluation revealed significant iron deficiency. She received IV iron infusion x1 in the hospital. She is being discharged on p.o. iron supplementation. Possible component of malabsorption contributing. Referrals provided to gastroenterology upon discharge. Information given for both [facility] and [facility] per her request. Physical Exam Narrative: General: No acute distress, AO x3 HEENT: PERRLA, pupils bilaterally equal and reactive, pallors not present Chest: Normal vesicular breath sounds, no added sounds, equal good air entry bilaterally CVS: S1-S2 regular, no murmurs, no tachycardia, no gallops, no rubs Abdomen: Soft, nontender, no organomegaly, bowel sounds present Neuro: No focal deficits, no facial deformity, AO x3, power 5/5 in all limbs Discharge Data Studies Completed and Pending Completed Studies During Hospitalization Category Date Time Status CT abdomen pelvis w con* [id number] Stat Cat Scan 01/13/23 09:44 Completed Pending at discharge Category Date Time Status Blood Culture Stat Lab 01/13/23 13:25 Results Laboratory Results WBC 7.53 10^3/uL (3.29-11.43) 01/18/23 05:30 RBC 5.35 10^6/uL (3.85-5.65) 01/18/23 05:30 Hgb 10.20 g/dL (11.27-16.99) L 01/18/23 05:30 Hct 36.2 % (36-47) 01/18/23 05:30 MCV 67.7 fl (85-98) L 01/18/23 05:30 MCH 19.1 pg (27-33) L 01/18/23 05:30 MCHC 28.2 g/dL (30-55) L 01/18/23 05:30 RDW 22.0 % (12.1-15.1) H 01/18/23 05:30 Plt Count 383 10^3/cmm (157-399) 01/18/23 05:30 MPV 9.3 fL (7.4-10.4) 01/18/23 05:30 Neut % (Auto) 69.3 % 01/18/23 05:30 Lymph % (Auto) 19.8 % 01/18/23 05:30 Boundary % (Auto) 9.7 % 01/18/23 05:30 Eos % (Auto) 0.1 % 01/18/23 05:30 Baso % (Auto) 0.3 % 01/18/23 05:30 Neut # (Auto) 5.22 10^3/uL (1.8-7.7) 01/18/23 05:30 Lymph # (Auto) 1.5 10^3/uL (0.8-4.8) 01/18/23 05:30 Boundary # (Auto) 0.7 10^3/uL (0.2-0.9) 01/18/23 05:30 Eos # (Auto) 0.0 10^3/uL (0.0-0.8) 01/18/23 05:30 Baso # (Auto) 0.0 10^3/uL (0.0-0.1) 01/18/23 05:30 Nucleated RBC % (auto) 0 % 01/18/23 05:30 Nucleated RBCs # 0.0 /100WBC 01/18/23 05:30 Sodium 141 mmol/L (136-145) 01/18/23 05:30 Potassium 3.3 mmol/L (3.5-5.1) L 01/18/23 05:30 Chloride 101 mmol/L (98-107) 01/18/23 05:30 Carbon Dioxide 30 mmol/L (22-29) H 01/18/23 05:30 Anion Gap 13.3 (5-19) 01/18/23 05:30 BUN 8 mg/dL (6-20) 01/18/23 05:30 Creatinine 0.6 mg/dL (0.5-0.9) 01/18/23 05:30 GFR Calculation 113.8 mL/min (90-130) 01/18/23 05:30 Glucose 78 mg/dL (65-115) 01/18/23 05:30 Calculated Osmolality 289 mOsm/kg (285-295) 01/18/23 05:30 Calcium 8.9 mg/dL (8.5-10.5) 01/18/23 05:30 Magnesium 1.9 mg/dL (1.7-2.3) 01/16/23 04:45 Iron 21 ug/dL (37-145) L 01/13/23 08:51 TIBC 336 mcg/dl 01/13/23 08:51 % Saturation 6.2 % (20-50) L 01/13/23 08:51 Unsat Iron Binding 315 ug/dL (112-347) 01/13/23 08:51 Ferritin 8 ng/mL (15-150) L 01/13/23 08:51 Total Bilirubin 0.5 mg/dL (0.15-1.2) 01/14/23 04:43 AST 14 U/L (0-32) 01/14/23 04:43 ALT 8 U/L (0-33) 01/14/23 04:43 Alkaline Phosphatase 66 U/L (35-105) 01/14/23 04:43 C-Reactive Protein 9.4 mg/L (0.0-4.9) H 01/13/23 08:51 Total Protein 5.7 g/dL (6.6-8.7) L D 01/14/23 04:43 Albumin 3.2 g/dL (3.5-5.2) L 01/14/23 04:43 Globulin 2.5 g/dL (1.3-4.6) 01/14/23 04:43 Lipase 13 U/L (13-60) 01/13/23 08:55 Vitamin B12 1552 pg/mL (232-1245) H 01/13/23 08:51 Folate 10.7 ng/mL (4.8-37.3) 01/13/23 08:37 TSH 2.99 uIU/mL (0.27-4.20) 01/13/23 08:51 HCG, Qual Negative (Negative) 01/13/23 08:55 Urine Color Yellow (Yellow) 01/13/23 08:51 Urine Appearance Hazy (CLEAR) A 01/13/23 08:51 Urine pH 6 (5-7) 01/13/23 08:51 Ur Specific [place] 1.030 (1.005-1.030) 01/13/23 08:51 Urine Protein Trace (Negative) 01/13/23 08:51 Urine Glucose (UA) Norm (Normal) 01/13/23 08:51 Urine Ketones 3+ (Negative) H 01/13/23 08:51 Urine Blood Neg (Negative) 01/13/23 08:51 Urine Nitrate Negative (Negative) 01/13/23 08:51 Urine Bilirubin Neg (Negative) 01/13/23 08:51 Urine Urobilinogen Norm mg/dL (Negative) 01/13/23 08:51 Ur Leukocyte Esterase Negative (Negative) 01/13/23 08:51 Urine RBC Rare /hpf (0-2) 01/13/23 08:51 Urine WBC 0-4 /hpf (0-5) H 01/13/23 08:51 Ur Squamous Epith Cells 5-10 /hpf (0-5) H 01/13/23 08:51 Amorphous Sediment Not Reportable 01/13/23 08:51 Urine Bacteria 1+ /hpf (NONE) H 01/13/23 08:51 Urine Mucus 2+ /hpf 01/13/23 08:51 Vitals Last Vital Signs Temp 97.7 F 01/18/23 08:00 Pulse 64 01/18/23 08:00 Resp 16 01/18/23 08:00 BP 112/73 01/18/23 08:00 Pulse Ox 100 01/18/23 08:00 O2 Del Method Room Air 01/18/23 08:00 Discharge Plan Discharge Patient Disposition: Home Condition: Stable Prescriptions: New alprazolam 0.5 mg Tablet 0.25 mg PO Q8H PRN (Reason: anxiety) 7 Days Qty: 21 0RF vancomycin 250 mg capsule See Rx Instructions .ROUTE .COMPLEX 56 Days Qty: 100 1RF Rx Instructions: Vancomycin in a tapered regimen as follows; 125 mg orally 4 times daily for 10 days, then 125 mg orally 2 times daily for 7 days, then 125 mg orally once daily for 7 days, then 125 mg orally every 2 to 3 days for 8 weeks pantoprazole [Protonix] 40 mg tablet,delayed release (DR/EC) 40 mg PO DAILY Qty: 60 0RF sertraline 50 mg Tablet 25 mg PO DAILY 30 Days Qty: 30 0RF prednisone 10 mg tablet See Taper PO Q12H Qty: 60 0RF Taper: predniSONE 60-10 60 mg Daily for 2 Days and 0 Hour 50 mg Daily for 2 Days and 0 Hour 40 mg Daily for 2 Days and 0 Hour 30 mg Daily for 2 Days and 0 Hour 20 mg Daily for 2 Days and 0 Hour 10 mg Daily for 2 Days and 0 Hour ferrous sulfate 325 mg (65 mg iron) tablet 325 mg PO DAILY Qty: 90 0RF Continued Wellbutrin XL 150 mg Tablet Extended Release 24 Hr 150 mg PO QAM Discontinued metronidazole 250 mg tablet 250 mg PO TID Qty: 21 0RF prednisone 20 mg tablet 20 mg PO BID 7 Days Qty: 14 0RF Lexapro 20 mg Tablet 20 mg PO QPM Discharge Orders: Discharge Order (Routine); Ordered 01/18/23 Ordered By: Maria Guadalupe Jenkins Referrals: [facility] [Outside] - 2 weeks (inflammatory bowel disease with recent flare ) Dick Gallego MD [Physician] - 01/25/23 1:45 pm Discharge Diet: As Directed and GI Soft Discharge Activity: Resume usual activity Patient Instructions: Opioid Safety Discharge Attestations Time Spent in Discharge Care*: greater than 30 min Quality Metrics Clinical Quality Measures [ No reported AMI, CVA or VTE this stay] Coding Level of Care Code Acute Code for Chg Fwd Diagnoses Inflammatory bowel disease K52.9 Pancolitis K51.00 Hyperemesis R11.10 Anemia D64.9 Dysthymia F34.1 SERENA (generalized anxiety disorder) F41.1
--- NOTE | 2023-01-18 10:10 | PC.NURSE ---
Vancomycin and prednisone prescription called into [facility] pharmacy.
== END 2023-01-18 13:16 | disposition home or self-care (01) | DRG 372 ==
LOC: ER 09:45 → MEDSURG 13:02
PROVIDERS: Family Medicine; Internal Medicine; Admitting Provider Internal Medicine; Emergency Provider Nurse Practitioner Family; Visit Provider Student in an Organized Health Care Education/Training Program
DX: A04.71 Enterocolitis due to Clostridium difficile, recurrent (principal); K51.00 Ulcerative (chronic) pancolitis without complications; F41.1 Generalized anxiety disorder; R00.1 Bradycardia, unspecified; D50.9 Iron deficiency anemia, unspecified; F12.90 Cannabis use, unspecified, uncomplicated; F43.10 Post-traumatic stress disorder, unspecified; F41.0 Panic disorder [episodic paroxysmal anxiety]; F32.A Depression, unspecified; E87.6 Hypokalemia
CPT/HCPCS: 36415; 74177; 80048; 80053; 81001; 82607; 82728; 82746; 83540; 83550; 83690; 83735; 84443; 84703; 85025; 86140; 87040; 87324; 87493; 87506; 93005; 96365; 96375; 99285; C9113; J1170; J1756; J2060; J2270; J2405; J2543; J2930; J3370; J3475; J3480; J3490; J7030; J7512; Q3014; Q9967

== ENCOUNTER 2023-05-05 05:54 | Day surgery (SDC) | payer MEDICAID, SELFPAY ==
[2023-05-05 06:10] VITALS: BP 123/76; PULSE 100; RESP 18; TEMP 36.4; O2SAT 98; BMI 24.7
[2023-05-05] MEDS: sodium chloride 0.9% 1,000 ML 30 ML IV (06:17)
[2023-05-05 06:19] LABS: OR HCG Qualitative Urine Negative (Negative)
--- NOTE | 2023-05-05 06:44 | ANES.PREANE2 ---
Pre-Anesthetic Assessment Height/Weight: Height 1.57 m Weight 61.235 kg Temp Pulse Resp BP Pulse Ox O2 Del Method 97.6 F 100 18 123/76 98 Room Air 05/05/23 06:10 05/05/23 06:10 05/05/23 06:10 05/05/23 06:10 05/05/23 06:10 05/05/23 06:10 Preop Diagnosis: hx of ulcerative colitis Operation Date: 05/05/23 07:00 [place] 87784 colon G0121 screen colon A risk K51.90(Not Applicable) - Karan Smith MD Last intake: Intake Last Liquid Date 05/04/23 Last Liquid Time 23:00 Last Solid Date 05/03/23 Last Solid Time 18:00 Social No alcohol and No tobacco Exam alert, oriented x 3, clear to auscultation bilaterally and regular rate & rhythm Airway Submandibular: within normal limits Cervical ROM: within normal limits Mallampati: Class I Dentition: chipped History/ROS No significant complaints Pulmonary None reported CV/HEM None reported None reported Hepatic None reported GI None reported Metabolic None reported Musc/skel None reported Neuropsych Anxiety Anesthetic Plan ASA status: 2 Anesthesia: Anesthesia Evaluation, General and MAC Medications/Allergies Home Medications Medication Instructions Recorded Confirmed Last Taken Type prednisone 10 mg tablet 10 mg PO DAILY Inflammatory bowel 03/29/23 05/05/23 05/04/23 Rx #30 tabs bupropion HCl 150 mg 24 hr tablet, 150 mg PO QAM #30 tabs 04/18/23 05/05/23 05/04/23 Rx extended release (Wellbutrin XL) pantoprazole 40 mg tablet,delayed 40 mg PO DAILY #60 tabs 04/18/23 05/05/23 05/04/23 Rx release (Protonix) ferrous sulfate 325 mg (65 mg 325 mg PO DAILY #90 tabs 05/03/23 05/05/23 05/04/23 Rx iron) tablet sertraline 50 mg tablet 50 mg PO DAILY anxiety 30 days #90 05/03/23 05/05/23 05/04/23 Rx tabs Allergies Allergy/AdvReac Type Severity Reaction Status Date / Time No Known Allergies Allergy Verified 03/21/23 07:52 Current Medications Generic Name Dose Route Start Last Admin Trade Name Freq PRN Reason Stop Dose Admin Sodium Chloride 1,000 mls @ 30 mls/hr 05/05/23 06:00 05/05/23 06:17 Sodium Chloride 0.9% IV 30 mls/hr .Q24H PATRICK Administration PFSH Anesthesia Medical History Anxiety Depression PTSD (post-traumatic stress disorder) Ulcerative colitis Surgical History H/O congenital atrial septal defect (ASD) repair History of History of hemorrhoidectomy History of hernia repair Family History Other Psychiatric illness Social History Alcohol intake: never Substance/Drug Use: current Data Anesthesia Cardiac Studies: No Data to Display
--- NOTE | 2023-05-05 06:46 | W.PM.OPSFHP ---
Same Day Surgery H&P Indication for Procedure/HPI DATE OF PROCEDURE: May 05, 2023 CHIEF COMPLAINT/INDICATIONFOR SURGICAL PROCEDURE: ulcerative colitis PREOP DIAGNOSIS: ulcerative colitis PLANNED PROCEDURE: Operation Date: 05/05/23 07:00 Proposed Procedures p 20804 colon G0121 screen colon A risk K51.90(Not Applicable) - Karan Smith MD Medications/Allergies* Allergies/Adverse Reactions Allergy/AdvReac Type Severity Reaction Status Date / Time No Known Allergies Allergy Verified 03/21/23 07:52 Current Medications: Generic Name Dose Route Start Last Admin Trade Name Freq PRN Reason Stop Dose Admin Sodium Chloride 1,000 mls @ 30 mls/hr 05/05/23 06:00 05/05/23 06:17 Sodium Chloride 0.9% IV 30 mls/hr .Q24H PATRICK Administration Pertinent History/Comorbid Conditions* Medical History (Updated 04/16/23 @ 12:05 by Dick Gallego MD) Depression Ulcerative colitis Anxiety PTSD (post-traumatic stress disorder) Surgical History (Updated 01/13/23 @ 12:49 by Rodriguez Burns MD) History of hemorrhoidectomy History of hernia repair History of H/O congenital atrial septal defect (ASD) repair Family History (Updated 01/13/23 @ 12:49 by Rodriguez Burns MD) Psychiatric illness Social History Alcohol intake: never Substance/Drug Use: current Pertinent Exam Findings alert, oriented x 3 and clear to auscultation bilaterally Recommendations Surgery/Procedure today Coding Level of Care Code Acute Code for Chg Fwd
[2023-05-05 07:17] VITALS: BP 114/64; PULSE 70; RESP 16; TEMP 36.3; O2SAT 100
[2023-05-05 07:35] VITALS: BP 125/75; PULSE 76; RESP 18; O2SAT 100
--- NOTE | 2023-05-05 14:29 | ANE.PACU2 ---
Inpatient post-anesthesia follow up: Airway intact: Yes Vital signs: Temperature 97.4 F Pulse Rate 76 Respiratory Rate 18 Blood Pressure 125/75 Pulse Oximetry 100 Oxygen Delivery Me thod Room Air Oxygen Flow Rate Fraction of Inspir ed Oxygen Hydration adequate: Yes Nausea and vomiting: No Pain level: 2 Mental status: Baseline
== END 2023-05-05 07:55 | disposition home or self-care (01) ==
PROVIDERS: Anesthesiology; PCP Family Medicine Adult Medicine; Visit Provider Surgery
PROC: 0DJD8ZZ Inspection of Lower Intestinal Tract, Via Natural or Artificial Opening Endoscopic (ICD-10-PCS; CPT 45300; 2023-05-05 07:00)
DX: K51.90 Ulcerative colitis, unspecified, without complications (principal); K62.4 Stenosis of anus and rectum; K62.89 Other specified diseases of anus and rectum
CPT/HCPCS: 45300; 81025; 84703; 88305; J2704; J7030

== ENCOUNTER → 2023-09-08 09:08 | Outpatient (BNVA) | payer MEDICAID, SELFPAY | PROVIDERS: PCP Family Medicine Adult Medicine; Visit Provider Nurse Practitioner Women's Health | DX: Z01.419 Encounter for gynecological examination (general) (routine) without abnormal findings (principal); Z78.9 Other specified health status | CPT/HCPCS: 87624 ==

== ENCOUNTER → 2023-09-30 09:17 | Outpatient (BNVA) | payer MEDICAID, SELFPAY | PROVIDERS: PCP Family Medicine Adult Medicine; Visit Provider Nurse Practitioner Women's Health | DX: Z30.9 Encounter for contraceptive management, unspecified (principal); Z30.46 Encounter for surveillance of implantable subdermal contraceptive | CPT/HCPCS: 81025 ==

== ENCOUNTER 2023-11-28 07:07 | Outpatient (CLI) | payer MEDICAID, SELFPAY ==
[2023-11-28 07:49] LABS: Basophils # 0.1 10^3/uL (0.0-0.1); Basophils % 0.9 %; Eosinophils # 0.1 10^3/uL (0.0-0.8); Eosinophils % 1.7 %; Lymphocytes % 13.4 %; Mean Corpuscular HGB Conc 32.2 g/dL (30-55); Mean Corpuscular Hemoglobin 26.7 pg (27-33); Mean Platelet Volume 8.9 fL (7.4-10.4); Monocytes # 0.5 10^3/uL (0.2-0.9); Monocytes % 6.8 %; Neutrophils # 5.96 10^3/uL (1.8-7.7); Neutrophils % 76.7 %; Nucleated Red Blood Cells % 0 %; Platelet Count 296 10^3/cmm (157-399); Red Blood Count 4.46 10^6/uL (3.85-5.65); Red Cell Distribution Width 15.7 % (12.1-15.1); White Blood Count 7.77 10^3/uL (3.29-11.43)
[2023-11-28 07:58] LABS: Alanine Aminotransferase 11 U/L (0-33); Albumin Level 3.7 g/dL (3.5-5.2); Alkaline Phosphatase 82 U/L (35-105); Anion Gap 16.9 (5-19); Aspartate Amino Transferase 15 U/L (0-32); Blood Urea Nitrogen 9 mg/dL (6-20); C Reactive Protein 23.5 mg/L (0.0-4.9); Calcium 8.4 mg/dL (8.5-10.5); Carbon Dioxide 22 mmol/L (22-29); Chloride 102 mmol/L (98-107); Globulin 3.2 g/dL (1.3-4.6); Glomerular Filtration Rate 94.7 mL/min (90-130); Glucose 102 mg/dL (65-115); Osmolality Calculated 283 mOsm/kg (285-295); Potassium 3.9 mmol/L (3.5-5.1); Sodium 137 mmol/L (136-145); Total Bilirubin 0.4 mg/dL (0.15-1.2); Total Protein 6.9 g/dL (6.6-8.7)
[2023-11-28 08:26] LABS: Hepatitis B Surface AB < 3.5 (11.5-1000)
[2023-11-28 08:28] LABS: Hepatitis B Core IgM Non-Reactive (Nonreactive); Hepatitis B Surface Antigen Non-Reactive (Nonreactive)
[2023-11-28 15:16] LABS: HIV 1 & 2 Antibody Non-Reactive (Non-Reactiv); HIV 1 & 2 Antigen Non-Reactive (Non-Reactiv)
[2023-11-30 14:45] LABS: Quantiferon Mitogen >10.00 IU/mL; Quantiferon Nil 0.06 IU/mL; Quantiferon TB Gold NEGATIVE (NEGATIVE)
== END 2023-11-28 07:08 | disposition home or self-care (01) ==
PROVIDERS: PCP Family Medicine Adult Medicine
DX: K52.9 Noninfective gastroenteritis and colitis, unspecified (principal)
CPT/HCPCS: 36415; 80053; 85025; 86140; 86480; 86705; 86706; 87340; 87806

== ENCOUNTER 2024-03-27 07:38 | Outpatient (CLI) | payer MEDICAID, SELFPAY | END 2024-03-27 07:39 | disposition home or self-care (01) | LOC: LAB 07:39 | PROVIDERS: PCP Family Medicine Adult Medicine; Visit Provider Nurse Practitioner Family | DX: K50.10 Crohn's disease of large intestine without complications (principal) | CPT/HCPCS: 36415; 82657 ==

== ENCOUNTER → 2024-08-09 08:22 | Outpatient (BNVA) | payer MEDICAID, SELFPAY | PROVIDERS: PCP Family Medicine; Visit Provider Family Medicine | DX: Z13.6 Encounter for screening for cardiovascular disorders (principal); D50.9 Iron deficiency anemia, unspecified | CPT/HCPCS: 80053; 82728; 83550; 85025 ==

== ENCOUNTER → 2024-09-24 09:33 | Outpatient (BNVA) | payer MEDICAID, SELFPAY | PROVIDERS: PCP Family Medicine Adult Medicine; Visit Provider Nurse Practitioner Women's Health | DX: Z01.419 Encounter for gynecological examination (general) (routine) without abnormal findings (principal) | CPT/HCPCS: 87624 ==